=== PATIENT | male | born 1980 | race Caucasian/White ===

== ENCOUNTER 2018-07-03 07:13 | Emergency (ER) | payer OTHER, SELFPAY ==
[2018-07-03 07:15] VITALS: BP 103/56; PULSE 78; RESP 14; TEMP 35.8; O2SAT 96; BMI 22.2
--- NOTE | 2018-07-03 07:33 | ED.VISSUMM ---
- ER Visit Summary Date of Service: 07/03/18 Chief Complaint: Headache History of Present Illness: The patient is a 37 M with history of migraine headaches and asthma who presents for 2 days of a headache. Patient states the headache is typical for his migraines and is located in the bilateral temples. It is achy and throbbing and is not responding to his home migraine medications. Patient has associated blurred vision but no nausea or vomiting. Patient states blurred vision is also typical for his migraine headaches. Today patient is also having a sore throat, sinus pressure, and a cough with associated pleuritic chest pain. He uses an albuterol inhaler as needed. Patient is a former smoker but does not smoke any longer. Physical Examination: Vital signs: afebrile, hemodynamically stable, no hypoxia on room air General: well nourished, well developed, in no distress, sitting with the lights on Skin: warm, dry, no rash, no pallor HEENT: normocephalic and atraumatic; PERRL, EOMI, no conjunctiva injection, moist mucous membranes, mild posterior oropharyngeal erythema without any exudate, swelling or lesions; patient has rhinorrhea and audible nasal congestion Cardiovascular: regular rate and rhythm without murmurs, no peripheral edema, 2+ pulses all distal extremities Respiratory: No increased work of breathing, lungs are clear to auscultation bilaterally, no rales, rhonchi or wheezing, no stridor Abdominal: Abdomen is soft, nontender with normoactive bowel sounds, no guarding or rebound, no masses MSK: Moves all extremities, no deformities, normal strength Neuro: Awake and alert, oriented ?4. No facial droop, sensation and motor function intact and symmetric Test Results: Clinical Impression(s) from Imaging Studies Chest X-Ray 07/03/18 07:55 IMPRESSION: Stable bilateral apical pleural thickening. Increased markings in the right infrahilar region suggestive of bronchiectasis. There has been no change. Electronically Signed: Sabino Hayes MD at 8:49 EDT Tel [phone], Service support , Medications Given Discontinued Medications Diphenhydramine HCl (Benadryl) 25 mg IV X1 ONE Stop: 07/03/18 07:33 Last Admin: 07/03/18 07:50 Dose: 25 mg Sodium Chloride () 1,000 mls @ 999 mls/hr IV .Q1H1M ONE Stop: 07/03/18 08:32 Last Admin: 07/03/18 07:46 Dose: 999 mls/hr Ketorolac Tromethamine (Toradol) 15 mg IV X1 ONE Stop: 07/03/18 07:33 Last Admin: 07/03/18 07:46 Dose: 15 mg Metoclopramide HCl (Reglan) 10 mg IV X1 ONE Stop: 07/03/18 07:33 Last Admin: 07/03/18 07:46 Dose: 10 mg Emergency Department Course and Treatment: Patient presents for 2 days of a typical migraine headache for him that is not responding to his home medications. This morning he is also having symptoms consistent with acute rhinosinusitis, with associated cough and pleuritic chest pain. Patient was offered oral medications, but he states since those did not work at home he would be amenable to a migraine cocktail. Patient was given a migraine cocktail of Reglan, Toradol, Benadryl and IV hydration. Chest x-ray was performed given the respiratory complaints on top of patient's chronic lung disease. Patient had no wheezing or diminished lung sounds on exam that would be concerning for acute asthma exacerbation requiring breathing treatments or steroids. Chest x-ray showed no signs of pneumonia. On reevaluation, patient's headache had decreased from an 8 out of 10 to a 4 out of 10. He was feeling much better and felt okay to go home and continue to rest. Patient was given a work note. Discharged home in improved condition. Treatment Plan: [] Disposition: [] Impression: Migraine headache, acute rhinosinusitis This note was generated with AskYou[employer] software. It may contain incorrect words, spelling, and punctuation that were not noted in review of the chart prior to signing ED Disposition - Plan for ED Patient: Chief Complaint: Headache Referrals: Immanuel Champion MD [Primary Care Provider] -
--- NOTE | 2018-07-03 07:37 | ED.DCSUM_ITS ---
- ER Visit Summary Date of Service: 07/03/18 Chief Complaint: Headache History of Present Illness: The patient is a 37 M with history of migraine headaches and asthma who presents for 2 days of a headache. Patient states the headache is typical for his migraines and is located in the bilateral temples. It is achy and throbbing and is not responding to his home migraine medications. Patient has associated blurred vision but no nausea or vomiting. Patient states blurred vision is also typical for his migraine headaches. Today patient is also having a sore throat, sinus pressure, and a cough with associated pleuritic chest pain. He uses an albuterol inhaler as needed. Patient is a former smoker but does not smoke any longer. Physical Examination: Vital signs: afebrile, hemodynamically stable, no hypoxia on room air General: well nourished, well developed, in no distress, sitting with the lights on Skin: warm, dry, no rash, no pallor HEENT: normocephalic and atraumatic; PERRL, EOMI, no conjunctiva injection, moist mucous membranes, mild posterior oropharyngeal erythema without any exudate, swelling or lesions; patient has rhinorrhea and audible nasal congestion Cardiovascular: regular rate and rhythm without murmurs, no peripheral edema, 2+ pulses all distal extremities Respiratory: No increased work of breathing, lungs are clear to auscultation bilaterally, no rales, rhonchi or wheezing, no stridor Abdominal: Abdomen is soft, nontender with normoactive bowel sounds, no guarding or rebound, no masses MSK: Moves all extremities, no deformities, normal strength Neuro: Awake and alert, oriented ?4. No facial droop, sensation and motor function intact and symmetric Test Results: Clinical Impression(s) from Imaging Studies Chest X-Ray 07/03/18 07:55 IMPRESSION: Stable bilateral apical pleural thickening. Increased markings in the right infrahilar region suggestive of bronchiectasis. There has been no change. Electronically Signed: Sabino Hayes MD at 8:49 EDT Tel [phone], Service support , Medications Given Discontinued Medications Diphenhydramine HCl (Benadryl) 25 mg IV X1 ONE Stop: 07/03/18 07:33 Last Admin: 07/03/18 07:50 Dose: 25 mg Sodium Chloride () 1,000 mls @ 999 mls/hr IV .Q1H1M ONE Stop: 07/03/18 08:32 Last Admin: 07/03/18 07:46 Dose: 999 mls/hr Ketorolac Tromethamine (Toradol) 15 mg IV X1 ONE Stop: 07/03/18 07:33 Last Admin: 07/03/18 07:46 Dose: 15 mg Metoclopramide HCl (Reglan) 10 mg IV X1 ONE Stop: 07/03/18 07:33 Last Admin: 07/03/18 07:46 Dose: 10 mg Emergency Department Course and Treatment: Patient presents for 2 days of a typical migraine headache for him that is not responding to his home medications . This morning he is also having symptoms consistent with acute rhinosinusitis, with associated cough and pleuritic chest pain. Patient was offered oral medications, but he states since those did not work at home he would be amenable to a migraine cocktail. Patient was given a migraine cocktail of Reglan, Toradol, Benadryl and IV hydration. Chest x-ray was performed given the respiratory complaints on top of patient's chronic lung disease. Patient had no wheezing or diminished lung sounds on exam that would be concerning for acute asthma exacerbation requiring breathing treatments or steroids. Chest x-ray showed no signs of pneumonia. On reevaluation, patient's headache had decreased from an 8 out of 10 to a 4 out of 10. He was feeling much better and felt okay to go home and continue to rest. Patient was given a work note. Discharged home in improved condition. Treatment Plan: [] Disposition: [] Impression: Migraine headache, acute rhinosinusitis This note was generated with mana.bo dictation software. It may contain incorrect words, spelling, and punctuation that were not noted in review of the chart pr ior to signing ED Disposition - Plan for ED Patient: Chief Complaint: Headache Referrals: Immanuel Champion MD [Primary Care Provider] -
[2018-07-03] MEDS: Ketorolac 30 MG/ML Syringe 15 MG IV (07:46)
[2018-07-03] MEDS: Metoclopramide 10 MG/2 ML Vial IV (07:46)
[2018-07-03] MEDS: 0.9% Normal Saline 1,000 ML 999 ML IV (07:46)
[2018-07-03] MEDS: DiphenhydrAMINE 50 MG/ML Syringe 25 MG IV (07:50)
--- NOTE | 2018-07-03 07:55 | RAD_ITS ---
STUDY: X-RAY CHEST REASON FOR EXAM: Male, 37 years old. One-week history of cough and headaches. TECHNIQUE: PA and lateral views of the chest. COMPARISON: Comparison is made with prior study dated April 10, 2017. FINDINGS: Stable mild degree of increased right infrahilar markings. Possible bronchiectasis at that site. Stable bilateral apical pleural thickening. Normal size heart. Normal mediastinum and naomi. Normal visualized pulmonary arteries. Normal visualized aortic arch and descending thoracic aorta. Normal visualized thoracic spine. Normal visualized ribs, clavicles, and shoulders. There is no demonstrated abnormality of the visualized soft tissue structures of the upper abdomen. RAD/Chest PA and Lateral IMPRESSION: Stable bilateral apical pleural thickening. Increased markings in the right infrahilar region suggestive of bronchiectasis. There has been no change. Electronically Signed: Sabino Hayes MD at 8:49 EDT Tel [phone], Service support ,
--- NOTE | 2018-07-03 08:59 | ED.DEP ---
ED Disposition - Plan for ED Patient: Disposition: Home or Assisted Living Chief Complaint: Headache Instructions: ED Headache Migraine, ED Sinusitis No Abx Referrals: Immanuel Champion MD [Primary Care Provider] - 3-5 Days if not improving Additional Instructions: Please rest for the rest of the day and drink plenty of fluids to stay hydrated. Continue your home medications as needed for your migraines and your asthma. If you have any worsening of your condition or any new concerning symptoms, please return immediately to the emergency department for another evaluation.
[2018-07-03 09:07] VITALS: BP 131/74; PULSE 62; RESP 15; O2SAT 98
== END 2018-07-03 09:11 | disposition home or self-care (01) ==
PROVIDERS: Emergency Provider Emergency Medicine; Family Provider Family Medicine; PCP Family Medicine
DX: G43.909 Migraine, unspecified, not intractable, without status migrainosus (principal); J01.90 Acute sinusitis, unspecified; J45.909 Unspecified asthma, uncomplicated
CPT/HCPCS: 71046; 96361; 96374; 96375; 99283; J7030

== ENCOUNTER 2018-07-17 06:09 | Emergency (ER) | payer OTHER, SELFPAY ==
[2018-07-17 06:10] VITALS: BP 115/70; PULSE 73; RESP 18; TEMP 36.4; O2SAT 99; BMI 21.6
--- NOTE | 2018-07-17 06:17 | EKG12_ITS ---
Test Reason : DIZZINESS Blood Pressure : / mmHG Vent. Rate : 063 BPM Atrial Rate : 063 BPM P-R Int : 148 ms QRS Dur : 094 ms QT Int : 412 ms P-R-T Axes : 076 070 070 degrees QTc Int : 421 ms Sinus rhythm with Premature supraventricular complexes Otherwise normal ECG Confirmed by YULY GAMEZ, VERONICA ([id number]), video effects editor JOE ABREU ([id number]) on 07/18/2018 3:44:14 PM Referred By: GLORIA Confirmed By:VERONICA EMERY MD
--- NOTE | 2018-07-17 06:20 | ED.DCSUM_ITS ---
- ER Visit Summary Date of Service: 07/17/18 Chief Complaint: Dizzy, nausea, vomiting History of Present Illness: The patient is a 37 M who was riding his bike to work this morning and felt nauseated, weak, and lightheaded. Patient did not eat anything this morning but states that is not atypical for him. He does report ill contacts and others with cough and congestion type symptoms. Patient states he felt well when he first got up this morning. He denies pain. Physical Examination: Vital signs are unremarkable. Patient is in no acute distress and is nontoxic appearing. Head and neck examination is normal. Heart is regular rate and rhythm. Palpable pulses are noted throughout. Lungs are clear with good air movement throughout. Abdomen is soft and nontender. Bowel sounds are noted. Extremity examination is unremarkable with full range of motion. Neurologic examination reveals no focal deficits. Test Results: EKG is sinus at 63 with no sign of acute interval change. CBC was normal white count. Hemoglobin 12.9. Chemistry studies unremarkable. Emergency Department Course and Treatment: Patient was given IV fluids and Zofran. On repeat evaluation he does feel improved. He is tolerating p.o. at this time. He will be given Zofran for home and a work note for today. Treatment Plan: [] Disposition: Discharge Impression: Nausea, improved This note was generated with Linkage dictation software. It may contain incorrect words, spelling, and punctuation that were not noted in review of the chart prior to signing ED Disposition - Plan for ED Patient: Chief Complaint: Dizziness Referrals: Immanuel Champion MD [Primary Care Provider] -
[2018-07-17 06:27] LABS: Absolute Lymphocyte Count 1.82 X10^3/ul (0.83-4.51); Absolute Neutrophil Count 4.7 X10^3/uL (2.0-7.7); Basophil# 0.04 X10^3/uL; Basophil% 0.5 % (0-1); Eosinophil# 0.24 X10^3/uL; Eosinophils% 3.1 % (0-5); Hematocrit 38.5 % (40-54); Hemoglobin 12.9 g/dl (13.0-16.5); Lymphocyte # 1.82 X10^3/ul (4.0); Lymphocyte % 23.9 % (19-41); Mean Corp Hgb Conc 33.5 g/gl (32-36); Mean Corpuscular Volume 83.7 fL (80-94); Monocyte# 0.77 X10^3/uL; Monocyte% 10.1 % (0-10); Neutrophil # 4.74 X10^3/uL (2.7-7.7); Neutrophil % 62.3 % (47-70); Platelet Count 317 K/mm3 (150-450); RBC Distribution Width CV 12.6 % (11.6-14.6); RBC Distribution Width SD 38.2 fl (35.1-43.9); White Blood Count 7.6 K/mm3 (4.4-11.0)
[2018-07-17] MEDS: Ondansetron 4 MG/2 ML Vial IV (06:27)
[2018-07-17] MEDS: 0.9% Normal Saline 1,000 ML 1000 ML IV (06:27)
[2018-07-17 06:28] LABS: POSITIVE COUNT NO; POSITIVE DIFFERENTIAL NO; POSITIVE MORPHOLOGY NO
[2018-07-17 06:48] LABS: Anion Gap 9 (5-15); BUN 25 mg/dL (7-18); BUN/Creat Ratio 22.5 RATIO (10-20); Calcium,Total 8.9 mg/dL (8.5-10.1); Chloride 106 mmol/L (98-107); Creatinine, Serum 1.11 mg/dL (0.70-1.30); EST Glomerular Filtration Rate 79 mL/min (>60); Est Glom Filt Rate - Afr Amer 96 mL/min (>60); Estimated Creatinine Clearance 76.73 ml/min; Glucose 110 mg/dL (74-106); Potassium 4.2 mmol/L (3.5-5.1); Sodium Level 141 mmol/L (136-145)
--- NOTE | 2018-07-17 07:14 | ED.DEP ---
ED Disposition - Plan for ED Patient: Disposition: Home or Assisted Living Chief Complaint: Dizziness Instructions: ED Nausea Vomiting Prescriptions: Ondansetron [Zofran Odt] 4 mg PO Q8H PRN PRN #10 tablet PRN Reason: Nausea Referrals: Immanuel Champion MD [Primary Care Provider] - 3-5 Days if not improving
[2018-07-17 07:22] VITALS: BP 115/70; PULSE 75; RESP 18; O2SAT 99
== END 2018-07-17 07:22 | disposition home or self-care (01) ==
PROVIDERS: Emergency Provider Emergency Medicine; Family Provider Family Medicine; PCP Family Medicine
DX: R11.0 Nausea (principal); R53.1 Weakness; K21.9 Gastro-esophageal reflux disease without esophagitis; J45.909 Unspecified asthma, uncomplicated; Z87.891 Personal history of nicotine dependence
CPT/HCPCS: 80048; 85025; 93005; 96361; 96374; 99284; J7030; A4216; J2405

== ENCOUNTER 2018-09-18 05:28 | Emergency (ER) | payer OTHER, SELFPAY ==
[2018-09-18 05:29] VITALS: BP 111/79; PULSE 75; RESP 18; TEMP 37; O2SAT 99; BMI 22.2
--- NOTE | 2018-09-18 05:31 | ED.RN ---
RN CALLED FOR EKG, PULLED OLD EKGS FOR
--- NOTE | 2018-09-18 05:41 | RAD_ITS ---
STUDY: X-RAY CHEST REASON FOR EXAM: Male, 37 years old. Left chest pain radiating into back starting yesterday TECHNIQUE: PA and lateral views of the chest. COMPARISON: 07/03/2018 FINDINGS: Joel monitors Stable hyperinflation and apical pleural thickening. Small stable calcified nodule left upper medial lung. Stable mild emphysematous changes. There is no demonstrated pleural abnormality. Normal size heart. Normal mediastinum and naomi. Normal visualized pulmonary arteries. Normal visualized aortic arch and descending thoracic aorta. Normal visualized thoracic spine. Normal visualized ribs, clavicles, and shoulders. There is no demonstrated abnormality of the visualized soft tissue structures of the upper abdomen. RAD/Chest PA and Lateral IMPRESSION: Stable hyperinflation with mild emphysema. No pulmonary edema, congestive heart failure or confluent pneumonia. Electronically Signed: Beth Dodson MD at 6:00 EST , Service support ,
--- NOTE | 2018-09-18 05:45 | ED.DCSUM_ITS ---
- ER Visit Summary Date of Service: 09/18/18 Chief Complaint: Chest pain History of Present Illness: The patient is a 37 M who presents with chest pain. It began yesterday. He describes it as a tightness. Currently it is 7 out of 10. It is on the left side of his chest and radiates through to his back. He has a history of prior similar symptoms related to his asthma. He does note recent URI-like illness with congestion rhinorrhea and productive cough. He is not short of breath. No history of DVT or pulmonary embolism. No recent travel surgery or immobilization. On review of records he has had multiple prior similar presentations. He has previously undergone significant chest pain workup including laboratory studies EKG chest x-ray CTA with multiple ER visit and primary care visits. He denies diabetes hypertension hyperlipidemia or smoking history. Physical Examination: Afebrile vitals are normal Patient resting comfortably no distress Skin warm and dry Moist mucous membranes Heart regular rate and rhythm Lungs are clear without rales rhonchi or wheezes Reproducible left upper chest tenderness which is where he indicates the worst of his pain is Abdomen soft Extremities nontender without edema 2+ symmetric radial pulses Test Results: EKG shows normal sinus rhythm at a rate of 75. View chest x-ray shows hyperinflation and mild emphysema no pulmonary edema CHF or confluent pneumonia. Emergency Department Course and Treatment: Patient has reproducible chest pain. He has normal EKG and no cardiac risk factors. I do not believe this is due to cardiac ischemia. He is PERC rule negative. I believe this is related to chest wall pain related to his recent URI-like illness and cough. He was advised on supportive care. He vocalized understanding. He is agreeable to this plan and all questions answered at bedside. He understands to return for new or worsening symptoms and was instructed on specific signs and symptoms to monitor for and was discharged home. Treatment Plan: [] Disposition: Discharge Impression: Chest wall pain This note was generated with [email or web address] dictation software. It may contain incorrect words, spelling, and punctuation that were not noted in review of the chart prior to signing ED Disposition - Plan for ED Patient: Chief Complaint: Chest Pain Referrals: Immanuel Champion MD [Primary Care Provider] -
--- NOTE | 2018-09-18 06:16 | EKG12_ITS ---
Test Reason : CP Blood Pressure : / mmHG Vent. Rate : 075 BPM Atrial Rate : 075 BPM P-R Int : 130 ms QRS Dur : 092 ms QT Int : 378 ms P-R-T Axes : 041 051 052 degrees QTc Int : 422 ms Normal sinus rhythm Normal ECG Confirmed by VERONICA EMERY MD ([id number]), editor house organ JOE ABREU ([id number]) on 09/23/2018 10:00:05 AM Referred By: SATISH Confirmed By:VERONICA EMERY MD
--- NOTE | 2018-09-18 06:17 | ED.DEP ---
ED Disposition - Plan for ED Patient: Chief Complaint: Chest Pain Instructions: ED Strain Chest Wall Referrals: Immanuel Champion MD [Primary Care Provider] -
[2018-09-18 06:21] VITALS: BP 110/68; PULSE 71; RESP 16; O2SAT 99
== END 2018-09-18 06:22 | disposition home or self-care (01) ==
LOC: ED 05:40
PROVIDERS: Emergency Provider Emergency Medicine; Family Provider Family Medicine; PCP Family Medicine
DX: R07.89 Other chest pain (principal); R05 Cough; J34.89 Other specified disorders of nose and nasal sinuses; J45.909 Unspecified asthma, uncomplicated
CPT/HCPCS: 71046; 93005; 99283

== ENCOUNTER 2019-02-26 15:05 | Emergency (ER) | payer SELFPAY ==
[2019-02-26 15:06] VITALS: BP 101/75; PULSE 90; RESP 17; TEMP 39.4; O2SAT 94; BMI 20.7
--- NOTE | 2019-02-26 15:46 | ED.VISSUMM ---
- ER Visit Summary Date of Service: 02/26/19 Chief Complaint: Sore throat fever and chills History of Present Illness: The patient is a 38 M past medical history of asthma and reflux. Patient states his Sunday since he was thrown chills. Able to swallow but hurts. Also cough with clear phlegm. No vomiting no diarrhea no dysuria. No trouble breathing. Physical Examination: Vital signs are stable he does have a fever of 103. Pulse ox 94% on room air no signs of hypoxia. Patient does not look septic or toxic. HEENT exam TMs normal bilaterally. Posterior pharynx bilateral tonsillar enlargement. Airway patent. No stridor. No drooling. Tonsils are erythematous and have exudate bilaterally. No peritonsillar abscess at this time. Neck is anterior chain lymphadenopathy trachea is nontender midline. No meningismus lungs with auscultation bilaterally. Heart regular rhythm no murmur. Abdomen is soft and nontender. Normal bowel sounds no peritoneal signs. Patient moving all 4 extremities. They are nontender. There is no erythema or edema. Back is nontender. Neurologically is awake and alert. He has no axillary or inguinal lymphadenopathy. Test Results: None Emergency Department Course and Treatment: Patient's clinical exam is consistent with acute strep tonsillitis. He will be given Tylenol for his fever. Started on amoxicillin for his strep throat. Treatment Plan: Warm salt water gargling. Plenty fluids and rest. Chloraseptic [place]. Alternate Tylenol Motrin for fever and pain. Amoxicillin 3 times daily for 10 days 30 no refill. Follow-up if not improving or return if worse. Disposition: Discharge Impression: Acute strep tonsillitis This note was generated with A[employer]on dictation software. It may contain incorrect words, spelling, and punctuation that were not noted in review of the chart prior to signing ED Disposition - Plan for ED Patient: Referrals: Immanuel Champion MD [Primary Care Provider] -
--- NOTE | 2019-02-26 15:53 | DCINST.ED_ITS ---
ED Disposition - Plan for ED Patient: Disposition: Home or Assisted Living Instructions: Strep Throat Prescriptions: Amoxicillin 500 mg PO Q8 #30 tab Prescription Printed Referrals: Immanuel Champion MD [Primary Care Provider] - 3-5 Days if not improving Additional Instructions: Plenty of fluids and rest. Alternate Tylenol and Motrin for pain and fever. Warm salt water gargling. Chloraseptic [place] and throat lozenges. Amoxicillin 3 times a day. Follow-up with your doctor if not improving and return if worse.
[2019-02-26] MEDS: AMOXICILLIN 500 MG CAPSULE PO (15:55)
[2019-02-26] MEDS: Acetaminophen 500 MG Tablet 1000 MG PO (15:55)
== END 2019-02-26 16:03 | disposition home or self-care (01) ==
PROVIDERS: Emergency Provider Emergency Medicine; Family Provider Family Medicine; PCP Family Medicine
DX: J03.00 Acute streptococcal tonsillitis, unspecified (principal); J45.909 Unspecified asthma, uncomplicated; K21.9 Gastro-esophageal reflux disease without esophagitis
CPT/HCPCS: 99283

== ENCOUNTER 2019-10-16 07:11 | Emergency (ER) | payer SELFPAY ==
[2019-10-16 07:12] VITALS: BP 116/74; PULSE 86; RESP 15; TEMP 36.7; O2SAT 98; BMI 22.0
--- NOTE | 2019-10-16 07:21 | EKG12_ITS ---
Test Reason : CP Blood Pressure : / mmHG Vent. Rate : 082 BPM Atrial Rate : 082 BPM P-R Int : 136 ms QRS Dur : 094 ms QT Int : 368 ms P-R-T Axes : 062 039 054 degrees QTc Int : 429 ms Normal sinus rhythm with sinus arrhythmia Normal ECG When compared with ECG of 18-SEP-2018 05:30, No significant change was found Confirmed by JANES QUIGLEY ([id number]), business editor LORENZO REDMOND ([id number]) on 10/24/2019 1:20:01 PM Referred By: JULIANNE Confirmed By:JANES QUIGLEY
--- NOTE | 2019-10-16 07:22 | RAD_ITS ---
STUDY: X-RAY CHEST REASON FOR EXAM: Male, 38 years old. CP. HX ASTHMA. OCCUPATION INVOLVES WORKING W/ [employer] TECHNIQUE: PA and lateral views of the chest. COMPARISON: 09/18/2018 FINDINGS: EKG leads project over the chest. The lungs are clear and expanded. There is pleural fibrotic thickening of the pulmonary lung apices. Normal size heart. Normal mediastinum and naomi. Normal visualized pulmonary arteries. Normal visualized aortic arch and descending thoracic aorta. Normal visualized thoracic spine. Normal visualized ribs, clavicles, and shoulders. There is no demonstrated abnormality of the visualized soft tissue structures of the upper abdomen. RAD/Chest PA and Lateral IMPRESSION: 1. Stable, nonacute x-ray examination of the chest. Electronically Signed: Mc Hudson MD ([place]) at 8:01 EST , Service support ,
[2019-10-16] MEDS: Aspirin 81 MG TAB.CHEW 324 MG PO (07:30)
[2019-10-16 07:42] LABS: Absolute Lymphocyte Count 1.48 X10^3/uL (0.83-4.51); Absolute Neutrophil Count 3.5 X10^3/uL (2.0-7.7); Basophil# 0.03 X10^3/uL; Basophil% 0.5 % (0-1); Eosinophil# 0.15 X10^3/uL; Eosinophils% 2.7 % (0-5); Hematocrit 42.8 % (40-54); Hemoglobin 14.3 g/dL (13.0-16.5); Lymphocyte # 1.48 X10^3/ul (4.0); Lymphocyte % 26.6 % (19-41); Mean Corp Hgb Conc 33.4 g/dL (32-36); Mean Corpuscular Hgb 27.4 pg (27.0-32.0); Mean Corpuscular Volume 82.1 fL (80-94); Monocyte% 7.2 % (0-10); NRBC Flagged by Analyzer 0 % (0-5); Neutrophil # 3.49 X10^3/uL (2.7-7.7); Neutrophil % 62.6 % (47-70); Platelet Count 296 K/mm3 (150-450); RBC Distribution Width CV 13.1 % (11.6-14.6); Red Blood Count 5.21 M/mm3 (4.6-6.2); White Blood Count 5.6 K/mm3 (4.4-11.0)
[2019-10-16 07:53] LABS: Anion Gap 5 (5-15); BUN 16 mg/dL (7-18); BUN/Creat Ratio 13.3 RATIO (10-20); Calcium,Total 8.9 mg/dL (8.5-10.1); Chloride 110 mmol/L (98-107); EST Glomerular Filtration Rate 72 mL/min (>60); Est Glom Filt Rate - Afr Amer 87 mL/min (>60); Estimated Creatinine Clearance 73.79 ml/min; Glucose 91 mg/dL (74-106); Potassium 3.8 mmol/L (3.5-5.1); Sodium Level 141 mmol/L (136-145)
--- NOTE | 2019-10-16 08:58 | ED.DCSUM_ITS ---
History of Present Illness Chief Complaint: Chest Pain Informant: Patient Narrative: Patient presenting for evaluation secondary to chest pain. Patient states that since yesterday has been dealing with intermittent chest pain. He states that it will come and go, does not necessarily have any sort of exacerbating relieving factors it is sharp and left-sided and will last for about 30 minutes and then spontaneously resolved. Patient states that today he was at work and had an onset of the chest pain and felt lightheaded. He denies that he had any associated shortness of breath. Patient denies any cardiovascular risk factors except for the fact that he does have a strong family history of premature cardiac disease with both his father and his grandfather having heart attacks prior to the age of 55. He is never had a stress test or heart cath. He has been tobacco free for about 9 years. He denies any DVT or PE risk factors. Review of systems otherwise negative. Past Medical History - Allergies and Home Meds Allergies/Adverse Reactions: Allergies latex Allergy (Verified 10/16/19 07:15) Rash azithromycin [From Zithromax] Adverse Reaction (Verified 10/16/19 07:15) Other Primary Care Physician: Care Physician,No Primary [Primary Care Provider] - Past Medical History: None Surgical History: noncontributory Smoking Status: Former smoker Review of Systems All systems negative except as indicated General: Denies: Chills, Fever, Sweats Eyes: Denies: Visual changes - bilaterally, Diplopia ENT: Denies: Rhinorrhea, Sore throat Cardiovascular: Reports: Chest pain Respiratory: Denies: Dyspnea, Cough, Dyspnea on exertion Gastrointestinal: Denies: Abdominal pain, Nausea, Vomiting, Diarrhea, Melena, Hematochezia Genitourinary: Denies: Dysuria, Hematuria, Frequency Musculoskeletal: Denies: Back pain, Extremity Pain Skin: Denies: Rash, Wounds Neurological: Denies: Headache, Weakness, Numbness Physical Exam Vital Signs/Narrative: Vital Signs Temp Pulse Resp BP Pulse Ox 10/16/19 07:12 98.0 F 86 15 116/74 98 Inital Vital Signs reviewed: Yes General: Well nourished, Well developed, No Acute Distress Head: Normocephalic, Atraumatic Eyes: Perrl, EOMI ENT: Moist mucous membranes, No rhinorrhea Neck: Supple, Nontender Cardiovascular: Regular rate, Regular rhythm, No murmurs Respiratory: No distress, CTA bilaterally, Chest nontender Abdomen: Soft, Nontender, Nondistended, Normal bowel sounds Back: Nontender, Normal Inspection Extremities: Nontender, No edema Skin: Normal color, No rash Neurological: Alert, Oriented x3, Cranial nerves II-XII grossly intact, Normal Strength, Normal Sensation Psychological: Normal affect, Normal Mood Diagnostic/Tx/Re-eval - EKG Initial EKG Interpretation: - - Sinus rhythm of 82 with sinus arrhythmia, isoelectric ST segments normal T waves no evidence of acute ischemia or arrhythmia. - Medical Decision Making Patient presented for evaluation secondary to chest pain. EKG was found to be unremarkable. PA and lateral chest x-ray by my personal review as well as radiology is negative for acute process. CBC chemistry and troponin are found to be negative. Patient's heart score is a 2, feel that he is low risk for coronary ischemia. 3-hour delta troponin was performed as the patient does have an underlying family history of premature cardiac disease, and also was found to be negative. Patient has no PE risk factors. I believe his chest pain is likely atypical in nature. I believe that he is safe and appropriate for discharge she was recommended follow-up at the [facility]. ED Disposition - Plan for ED Patient: Disposition: Home or Assisted Living Diagnosis: Chest pain Instructions: CHEST PAIN, Uncertain Cause Referrals: Melania Pope [NON-STAFF] - 1-2 Weeks
[2019-10-16 08:59] VITALS: BP 104/77; PULSE 57; RESP 18; O2SAT 100
[2019-10-16 11:24] VITALS: BP 110/72; PULSE 65; RESP 15; O2SAT 100
== END 2019-10-16 11:25 | disposition home or self-care (01) ==
PROVIDERS: Emergency Provider Emergency Medicine
DX: R07.9 Chest pain, unspecified (principal); J45.909 Unspecified asthma, uncomplicated; Z82.49 Family history of ischemic heart disease and other diseases of the circulatory system; Z87.891 Personal history of nicotine dependence; Z88.1 Allergy status to other antibiotic agents; Z91.040 Latex allergy status
CPT/HCPCS: 71046; 80048; 84484; 85025; 93005; 99285; A4216

== ENCOUNTER 2020-02-09 06:16 | Emergency (ER) | payer SELFPAY ==
[2020-02-09 06:16] VITALS: BP 110/69; PULSE 65; RESP 18; TEMP 36.5; O2SAT 98; BMI 21.9
--- NOTE | 2020-02-09 06:20 | ED.DCSUM_ITS ---
History of Present Illness Chief Complaint: Asthma Informant: Patient Narrative: Stated he started having asthma flare yesterday. No home treatment. He did not have his albuterol inhaler. Has had wheezing and shortness of breath secondary to wheezing. Last prednisone usage is unknown. It is been sometime. He stated that this started when him and his stated that his sister's house and has a dog that sheds. No sick contacts. Current severity is mild to moderate. Worsened this morning so he came in for breathing treatments. Denies any coronavirus exposure. Past Medical History - Allergies and Home Meds Allergies/Adverse Reactions: Allergies latex Allergy (Verified 10/16/19 07:15) Rash azithromycin [From Zithromax] Adverse Reaction (Verified 10/16/19 07:15) Other Primary Care Physician: Care Physician,No Primary [Primary Care Provider] - Prior records reviewed: Yes Past Medical History: - - Asthma Surgical History: noncontributory Smoking Status: Former smoker Alcohol: None Drugs: None Review of Systems General: Denies: Chills, Fever, Sweats Eyes: Denies: Visual changes - bilaterally, Diplopia ENT: Denies: Rhinorrhea, Sore throat Cardiovascular: Denies: Chest pain, Palpitations Respiratory: Reports: Dyspnea. Denies: Cough, Dyspnea on exertion Gastrointestinal: Denies: Abdominal pain, Nausea, Vomiting, Diarrhea, Melena, Hematochezia Genitourinary: Denies: Dysuria, Hematuria, Frequency Musculoskeletal: Denies: Back pain, Extremity Pain Skin: Denies: Rash, Wounds Neurological: Denies: Headache, Weakness, Numbness Physical Exam Vital Signs/Narrative: Vital Signs Temp Pulse Resp BP Pulse Ox 02/09/20 06:16 97.7 F L 65 18 110/69 98 General: Well nourished, Well developed, No Acute Distress Head: Normocephalic, Atraumatic Eyes: Perrl, EOMI ENT: Moist mucous membranes, No rhinorrhea Neck: Supple, Nontender Cardiovascular: Regular rate, Regular rhythm, No murmurs Respiratory: No distress, Chest nontender, Wheezing - Diffuse expiratory wheezing throughout all lung curiel. Speaking in full sentences.. Negative for: Retractions Abdomen: Soft, Nontender, Nondistended, Normal bowel sounds Back: Nontender, Normal Inspection Extremities: Nontender, No edema Skin: Normal color, No rash Neurological: Alert, Oriented x3, Cranial nerves II-XII grossly intact, Normal Strength, Normal Sensation Psychological: Normal affect, Normal Mood Diagnostic/Tx/Re-eval - Medical Decision Making Patient given albuterol treatment nebulizer x3 and Atrovent nebulizer treatment x1. On reevaluation wheezing is much better. Given oral prednisone. I do not feel he needs imaging. Given albuterol inhaler for home. Given a prescription for prednisone. At this time I feel he has an acute asthma exacerbation ED Disposition - Plan for ED Patient: Disposition: Home or Assisted Living Diagnosis: Acute asthma exacerbation Instructions: Understanding Asthma Triggers Prescriptions: Prednisone [Deltasone] 60 mg PO DAILY #15 tab Transmission Status: Pending to [id number] Referrals: Alberto Brown MD [STAFF PHYSICIAN] -
[2020-02-09] MEDS: predniSONE 20 MG Tablet 60 MG PO (06:22)
[2020-02-09] MEDS: Ipratropium/Albuterol Sulfate 3 ML AMPUL.NEB INHALATION (06:36)
[2020-02-09] MEDS: Albuterol 2.5 MG/3 ML VIAL.NEB. INHALATION ×3 (06:36)
[2020-02-09 06:37] VITALS: PULSE 65; RESP 16; O2SAT 97
[2020-02-09 07:06] VITALS: PULSE 88; RESP 19; O2SAT 98
--- OUTSIDE RECORDS SUMMARY | 2020-06-27 05:30 | XMS RPT_ITS | CCD ---
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 dermatitis [L21.9] INVALID FOR* Tobacco chew use [Z72.0] INVALID FOR* Mild intermittent asthma without complication [*INVALID FOR* Encounter for screening for diabetes mellitus [*INVALID FOR* Encounter for screening for cardiovascular diso*INVALID FOR* Post concussion syndrome [F07.81] INVALID FOR* Family history of MT (myocardial infarction) [Z*INVALID FOR* More... GERD without esophagitis [K21.9] INVALID FOR* Current use of proton pump inhibitor [Z79.899] INVALID FOR* Seasonal allergic rhinitis [J30.2] INVALID FOR* Prescriptions ordered this encounter Disp Refills Start End SUMATRIPTAN 100 MG TABLET 12 t* 1 10/09/2018 Sig: One table by mouth with onset of headache. Can repeat i n an hour but only 2 tabs in 24 hrs. CETIRIZINE 10 MG TABLET 30 t* 1 10/09/2018 Route: ORAL Sig: Take 1 tablet by mouth once daily. OMEPRAZOLE 40 MG CAPSULE,DELAYED REL* 30 c* 1 10/09/2018 Route: ORAL Sig: Take 1 capsule by mouth once daily. Medications Discontinued During This Encounter SUMAtriptan (IMITREX) 100 mg tablet 12 t* 3 04/24/2018 019 Sig: One table by mouth with onset of headache. Can repeat in an hour but only 2 tabs in 24 hrs. Disc: Reason for discontinue is not on file. cetirizine (ZYRTEC) 10 mg tablet 30 t* 5 04/24/2018 10/09/2018 Route: ORAL Sig: Take 1 tablet by mouth once daily. Disc: Reason for discontinue is not on file. Omeprazole 40 mg capsule 30 c* 5 04/24/2018 10/09/2018 Route: ORAL Sig: Take 1 capsule by mouth once daily. Disc: Reason for discontinue is not on file. Disposition: Return for 1-2 months complete PE. Follow-up and Disposition History Recorded Clinical report posted in error Void Comment: error Letter Text October 09, 2018 TO WHOM IT MAY CONCERN: This is to certify that Mr. Bruce Coleman has been under m y care for general illness and was seen in my office 10/09/3018 and was unable to work from 10/09/2018 through 10/09/2018. Mr. Coleman may return to work on 10/10/2018 without restri ctions. Sincerely yours, Zheng Pabon MD Encounter Status:Closed by ZHENG PABON on 10/09/18 cnco on 2018-10-09 CNCO Letter Text Normal 10-09-2018 [facility] ([id number]) Department of Family Medicine [address] [place], [place] [id number] October 09, 2018 TO WHOM IT MAY CONCERN: This is to certify that Mr. Bruce Coleman has been under m y care for general illness and was seen in my office 10/09/2018 and was unable to work from 10/09/2018 through 10/09/2018. Mr. Coleman may return to work on 10/10/2018 without restri ctions. Sincerely yours, Zheng Pabon MD Summary Purpose Family History No Family History Records Found Advance Directives No Advanced Directives Records Found Additional Source Comments FOR RECORDS PERTAINING TO PATIENTS WHO ARE OR HAVE BEEN ENROLLED IN A CHEMICAL DEPENDENCY/SUBSTANCE ABUSE PROGRAM, SOME INFORMATION MAY BE OMITTED. This clinical summary was aggregated from multiple sources. Caution should be exercised in using it in the provision of clinical care. This summary normalizes information from multiple sources, and as a consequence, information in this document may materially changethe coding, format and clinical context of patient data. In addition, data may be omittedin some cases. CLINICAL DECISIONS SHOULD BE BASED ON THE PRIMARY CLINICAL RECORDS. [facility] provides no warranty or guarantee of the accuracy or completeness of information in this document. UNRECOGNIZED CONTENT PROVIDED BELOW FOR UNRECOGNIZED SECTION No Status Records Found UNRECOGNIZED CONTENT PROVIDED BELOW FOR UNRECOGNIZED SECTION INFORMATION SOURCE DATE CREATED AUTHOR AUTHOR'S ORGANIZATIO N 08/19/2019 [facility] Pablo galvez
--- OUTSIDE RECORDS SUMMARY | 2020-06-27 05:32 | XMS RPT_ITS | CCD ---
:1980 External Reference #:[id number] Author Organization [facility] [employer] Care Team Providers Name Role Phone Unavailable Unavailable Unavailable Results Result Name Value Range Unit Interpretation Flag Date Location progress on 2019-08 PROGRESS HNO ID: [id number] Normal 08-19-2019 [facility] Author: Jeb Jones) Dary Brantley ([id number]) Service: ? Author Type: Physician Breakfast Server Type: Progress Notes Filed: 08/19/2019 2:49 PM [...] of Onset - Coronary Artery Disease Father NE age 46 - Asthma Father - COPD [...] 2019-08-19 CNOV Office Visit (UCWSTR) Normal 08-19-[address] [place] [address] [facility] BRUCE COLEMAN ([id number]) 1980 [facility] Date Time Provider Department ([id number]) 08/19/19 12:00 PM JEB ODEN (RELL) UCWSTR [...] of Onset - Coronary Artery Disease Father NE age 46 - Asthma Father - COPD [...] cough [J06.9, B97.89] Order(s):RAPID STREP TEST B/O [[id number]] Order #: [id number] predniSONE (DELTASONE) 20 mg tabletTake 2 tablets [...] concussion syndrome [F07.81] 07/26/2015 Family history of NE (myocardial infarction) [Z*01/19/2016 More... GERD without esophagitis [...] 08/19/19 progress on 2018-11 PROGRESS HNO ID: [id number] Normal 11-12-2018 [place] Author: [facility] Service: ? [place] Author Type: Physician Breakfast Server ([id number]) Type: Progress Notes Filed: 11/12/2018 3:44 PM [...] of Onset - Coronary Artery Disease Father NE age 46 - Asthma Mother - Asthma [...] Disorders Post Concussion Syndrome Family History of NE (Myocardial Infarction) Gerd Without Esophagitis Current Use [...] Abs Lymph 1.00 - 4.00 k/uL 1.65 [place]% % 8.5 Abs [place] <0.87 k/uL 0.57 Eosin% % 3.0 Abs [...] 2018-11-12 CNOV Office Visit (FAMPWS) Normal 11-13-19 [place] [facility] BRUCE COLEMAN ([id number]) 1980 M [place] Date Time Provider Department ([id number]) 11/12/18 3:00 PM NATE JIMÉNEZ) FAMPWS During [...] of Onset - Coronary Artery Disease Father NE age 46 - Asthma Mother - Asthma [...] Disorders Post Concussion Syndrome Family History of NE (Myocardial Infarction) Gerd Without Esophagitis Current Use [...] Abs Lymph 1.00 - 4.00 k/uL 1.65 [place]% % 8.5 Abs [place] <0.87 k/uL 0.57 Eosin% % 3.0 Abs [...] inhibitor [Z79.899] Order(s):MAGNESIUM BLD [SQMG1] Order #: [id number] FUTURE Prescriptions as of 11/12/2018 Sig: SUMATRIPTAN [...] syndrome [F07.81] INVALID FOR* Family history of NE (myocardial infarction) [Z*INVALID FOR* More... GERD without esophagitis [K21.9] INVALID FOR* Current use of proton pump inhibitor [Z79.899] INVALID FOR* Seasonal allergic rhinitis [J30.2] INVALID FOR* Medications Discontinued During This Encounter Sxrcuapowhadf-Xmkpkazpulrvl-HW (TYLE* 30 t* 0 08/19/201811/12 Route: ORAL [...] 11/12/18 progress on 2018-09 PROGRESS HNO ID: [id number] Normal 10-09-2018 [facility] Author: Zheng Pabon [place] Service: (none) (000 00) Author Type: Physician [...] of Onset - Coronary Artery Disease Father NE age 46 - Asthma Mother - Asthma [...] for Wheezing/Shortness of Breath. Use over 5-15minutes. Zctyafurijvpe-Obbamxwrcovol-PD (TYLENOL COLD HEAD CONGEST SE VR) 5-325-200 [...] for SHAINA Pabon MD PROGRESS HNO ID: [id number] Normal 10-09-2018 [facility] Author: Deandra Antony Ma [place] Service: (none) (000 00) Author Type: (none) Type: Progress Notes Filed: 10/09/2018 9:49 PM Note Text: 37 year old male here for INACTIVATED INFLUENZA VACCINE. 3531-1830 Season Patient is identified by name and date of : Yes ___ [] CONTRAINDICATIONS color enhanced section Age less than 6 months? No Allergy to eggs, chicken, chicken feathers, or chicken dande r? No Allergy to thimerosal (a preservative) or formaldehyde, rosanna tin? No History of severe reaction to any vaccine component or a pre vious dose of influenza vaccination? 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 Yes See immunization activity in [facility] for details of immuniz ations adminstered today. Patient age: [age] year old For The 5119-5354 Flu Season 6-35 months old: Fluzone 0.25 [...] Specimen Source Throat Swab Normal 10-09-19 19 [facility] ([id number]) Comment: Performed By: #### GASPCR ## ## [facility] [address] [place], [place] [address] Group A Strep PCR Negative for Group A Normal 0 10-09-2018 [facility] Streptococcus by PCR. [place] ([id number]) Comment: Result Comment: This test wa s developed and its performance characteristics determined by [facility] [place] ([facility]). It has not been cleared or a pproved by the FDA. [facility] is regulated under CLIA as qualified to perform high-complexity testing. This test is used for clinical purposes. It should not be regarded as inv estigational or for research . Performed By: #### GASPCR ## ## [facility] [address] [place], [place] [address] cnov on 2018-10-09 CNOV Office Visit (FAMPWS) Normal 10-09-19 19 [place] [facility] BRUCE COLEMAN ([id number]) 1980 [facility] Date Time Provider Department ([id number]) 10/09/18 1:20 PM ZHENG PABON [facility] During your visit today, we recorded the following informati on about you: Temperature Pulse Respiration Blood pressure 97.8 degrees 68/minute 12/minute 112/80 Weight 60.3 kg Deandra Antony Ma 10/09/2018 9:49 PM Signed 37 year old male here for INACTIVATED INFLUENZA VACCINE. 3771-8242 Season Patient is identified by name and date of : Yes ___ [] CONTRAINDICATIONS color enhanced section Age less than 6 months? No Allergy to eggs, chicken, chicken feathers, or chicken dande r? No Allergy to thimerosal (a preservative) or formaldehyde, rosanna tin? No History of severe reaction to any vaccine component or a pre vious dose of influenza vaccination? No History of Guillain-Huntington Syndrome within 6 weeks afte r a [...] patient has fainted in the past, e [facility] recommends sitting or lying down for 15 minutes after the vaccination. ___ [] VERIFICATION color enhanced section Was the answer Yes for any of the above contraindications? No contraindications present. Acceptable to proceed with vaccin e. Patient/guardian agrees the above answers are true to the be st of their knowledge? Yes Flu vaccine information sheet given? Yes See immunization activity in [facility] details of immunizations adminstered today. Patient age: [age] year old For The 9455-6583 Flu Season 6-35 months old: Fluzone 0.25 [...] 37 [facility] Complaint[facility].. Patient has had a [...] of Onset - Coronary Artery Disease Father NE age 46 - Asthma Mother - Asthma [...] Wheezing/Shortne ss of Breath. Use over 5-15minutes. Ggyfehybbimoe-Cwdjkzxtlznmr-HB (TYLENOL COLD HEAD SOL EST SEVR) 5-325-200 [...] QUADRIVALENT AGE 3 YRS PLUS + IM [[id number]] Order #: [id number] SUMAtriptan (IMITREX) 100 mg tabletOne table by mouth with o nset of headache. Can repeat in an hour but only 2 tabs in 24 hrs.Di sp: 12 tabletRfl: 1 cetirizine (ZYRTEC) 10 mg tabletTake 1 tablet by mouth once daily.Disp: 30 tabletRfl: 1 Omeprazole 40 mg capsuleTake 1 capsule by mouth once daily.D isp: 30 capsuleRfl: 1 RAPID STREP TEST B/O [[id number]] Order #: [id number] GROUP A STREPTOCOCCUS BY PCR [SQGASPCR] Order #: [id number] pec. #:[id number] Prescriptions as of 10/09/2018 Sig: SUMATRIPTAN 100 MG TABLET One table by mouth with onset* CETIRIZINE 10 MG TABLET Take 1 tablet by mouth once d* OMEPRAZOLE 40 MG CAPSULE,NANCY* Take 1 capsule by mouth once * ALBUTEROL SULFATE 90 MCG/ACTU* Inhale 1 Inhalation as instru * ALBUTEROL SULFATE 2.5 MG/3 ML* Use 3 mL via nebulizer every * GLBCEKEJYVPVY-TEWZFUCEPBYTH-N* Take 1 Dose by mouth as direc [...] syndrome [F07.81] INVALID FOR* Family history of NE (myocardial infarction) [Z*INVALID FOR* More... GERD without [...] on 2018-10-09 CNCO Letter Text Normal 10-09-2018 [facility] ([id number]) Department of Family Medicine [address] [place], [place] [phone] October 09, 2018 TO WHOM IT MAY [...] BE BASED ON THE PRIMARY CLINICAL RECORDS. [email or web address] [facility] provides no warranty or guarantee of the accuracy or completeness of information in this document. UNRECOGNIZED CONTENT PROVIDED BELOW FOR UNRECOGNIZED SECTION No Status Records Found UNRECOGNIZED CONTENT PROVIDED BELOW FOR UNRECOGNIZED SECTION INFORMATION SOURCE DATE CREATED AUTHOR AUTHOR'S ORGANIZATIO N 08/19/2019 [facility] Pablo galvez
== END 2020-02-09 07:08 | disposition home or self-care (01) ==
LOC: ED 07:03
PROVIDERS: Emergency Provider Emergency Medicine; PCP Family Medicine
DX: J45.901 Unspecified asthma with (acute) exacerbation (principal); Z87.891 Personal history of nicotine dependence; Z88.1 Allergy status to other antibiotic agents; Z91.040 Latex allergy status
CPT/HCPCS: 94640; 99251; 99284; G0463

== ENCOUNTER 2021-03-03 17:40 | Emergency (ER) | payer SELFPAY ==
[2021-03-03 17:41] VITALS: BP 127/66; PULSE 77; RESP 15; TEMP 36.1; O2SAT 99; BMI 21.3
--- NOTE | 2021-03-03 18:15 | RAD_ITS ---
STUDY: X-RAY - LEFT KNEE REASON FOR EXAM: Male, 40 years old. Injury/Pain TECHNIQUE: 4 view(s) of the knee. COMPARISON: None. FINDINGS: Normal visualized distal femur. Normal visualized proximal tibia and fibula. Normal proximal tibiofibular articulation. There is no demonstrated fracture. Normal medial femorotibial compartment. Normal lateral femorotibial compartment. Normal patellofemoral articulation. There is a small to moderate volume joint effusion. The soft tissue structures are unremarkable. RAD/Knee 4 or More Views IMPRESSION: Small to moderate effusion. No gross fractures or dislocations. Electronically Signed: Noe Torres MD at 18:54 EDT , Service support ,
--- NOTE | 2021-03-03 19:39 | EDS_ITS ---
HPI History of Present Illness HPI Narrative: Patient presents with left knee pain for the past 2 weeks. Patient states it is gradually gotten worse. Patient denies any specific trauma or injury. Patient states the pain is localized over the anterior aspect of the left knee. Patient states it feels like it is slightly more swollen than the right. Patient states the pain is worse with flexion. Patient states nothing makes the pain better. Patient denies any paresthesias or weakness. Patient describes his pain as sharp. Chief Complaint: Lower Extremity Injury Informant: patient Onset/Context/Timing Onset: Weeks (2) Context: Gradual Onset Timing: Continuous Quality of Pain: Sharp Location: Anterior left knee Worsened by: Flexion Relieved by: Nothing Associated Symptoms Associated Symptoms: Negative for Parasthesia and Weakness PFSH PFS Medical History (Updated 03/03/21 @ 19:[address] Blane Tyler DO) Asthma GERD (gastroesophageal reflux disease) Home Medications albuterol sulfate [Ventolin Hfa] 1 puff INHALATION Q4H PRN PRN 04/10/17 [History Last Taken 04/10/17 04:30] Allergy/AdvReac Type Severity Reaction Status Date / Time latex Allergy Rash Verified 03/03/21 17:42 azithromycin [From Zithromax] AdvReac Other Verified 03/03/21 17:42 no surgical history Social History Smoking Status: Never smoker ROS ROS ED Constitutional Constitutional ED: Denies chills or fever(s) Eyes Eyes: Denies blurry vision or change in vision ENT ENT ED: Denies rhinorrhea or sore throat Cardiovascular Cardiovascular: Denies chest pain or palpitations Respiratory/Chest Respiratory/Chest: Denies cough or dyspnea Gastrointestinal Gastrointestinal: Denies nausea or vomiting Genitourinary Genitourinary ED: Denies dysuria or hematuria Musculoskeletal Musculoskeletal: Denies back pain or neck pain Integumentary Denies abscess or rash Neurologic Neurologic: Denies headache(s) or weakness Allergic/Immunologic Allergic/Immunologic ED: Denies mouth swelling or urticaria EXAM Physical Exam Const Vital Signs: 03/03/21 17:41 03/03/21 19:47 Temperature 96.9 F L Temperature Source Temporal Pulse Rate 77 70 Respiratory Rate 15 18 Blood Pressure 127/66 H Blood Pressure Mean 86 Pulse Ox 99 Oxygen Delivery Method Room Air Positive well nourished and well developed General Appearance ED: well developed HEENT Reports moist mucous membranes Neck full ROM Extremity Extremity Narrative: There is some tenderness over the anterior lateral aspect of the left knee. There is no deformity. There is no effusion. There is no bony crepitance or step-off. Range of motion was limited from 0 to 10 degrees of flexion due to pain. There is no laxity however there was some guarding on exam. Pedal pulses are equal bilateral. There are no sensory deficits noted. Neuro oriented x3, CN's II-XII intact bilaterally, moves all extremities and no sensory deficits noted Sensorium / Orientation: alert Psych mental status grossly normal MDM MDM MDM Narrative Medical decision making narrative: X-rays of the left knee were obtained. There are 4 views. On my interpretation, there is no acute fracture. There is no dislocation. There is no soft tissue swelling. Radiologist also interpreted the x-rays and agrees. Patient was instructed to use ice to the area. Patient was instructed to keep the left knee elevated. Patient was instructed to follo w-up with his primary care physician in 5 to 7 days. Patient was instructed Tylenol or ibuprofen as needed for pain. Patient understood and was agreeable with the plan. All questions were answered. Radiography Diagnostic Testing: Radiology Impression Knee X-Ray 03/03/21 18:15 IMPRESSION: Small to moderate effusion. No gross fractures or dislocations. Electronically Signed: Noe Torres MD at 18:54 EDT , Service support , Discharge Plan Triage Chief Complaint: Lower Extremity Injury ED Provider: Blane Tyler Dx/Rx/DC Orders Clinical Impression: Knee pain, left Instructions: ED Knee Pain of Uncertain Cause Prescriptions: No Action albuterol sulfate [Ventolin HFA] 18 GM HFA aerosol inhaler 1 puff inhalation Q4H PRN PRN (Reason: Asthma) RF: 0 Primary Care Provider: Immanuel Champion Referrals: Immanuel Champion MD [Primary Care Provider] - 5-7 Days Disposition Disposition: Home, Self Care Discharge Date/Time: 03/03/21 19:48
[2021-03-03 19:47] VITALS: PULSE 70; RESP 18
== END 2021-03-03 19:48 | disposition home or self-care (01) ==
PROVIDERS: Emergency Provider Emergency Medicine; PCP Family Medicine
DX: M25.562 Pain in left knee (principal); K21.9 Gastro-esophageal reflux disease without esophagitis; J45.909 Unspecified asthma, uncomplicated
CPT/HCPCS: 73564; 99282

== ENCOUNTER 2021-04-03 23:25 | Emergency (ER) | payer SELFPAY ==
[2021-04-03 23:25] VITALS: BP 126/84; PULSE 74; RESP 18; TEMP 36.6; O2SAT 98; BMI 22.1
--- NOTE | 2021-04-03 23:44 | EX.ED.DYSGE1 ---
HPI History of Present Illness Chief Complaint: Rash Detail of Chief Complaint: Rash that started this evening Informant: patient Narrative Narrative: Patient presents to the emergency department complaint of a rash that started this evening. Patient describes an itchy rash that started on his medial thighs and also upper arms. Denies any new soaps or detergents or perfumes. Denies eating any nuts or unusual foods. Patient states that he did have a stomach flulike illness that lasted about 24 hours 2 days ago. Patient states he started feeling normal yesterday. Prior similar symptoms: No PFSH PFSH Medical History (Updated 04/03/21 @ 23:[address] Zenon Cowan, ) Asthma GERD (gastroesophageal reflux disease) Home Medications albuterol sulfate [Ventolin Hfa] 1 puff INHALATION Q4H PRN PRN 04/10/17 [History Last Taken 04/10/17 04:30] hydroxyzine HCl 25 mg PO Q8H PRN #14 tab 04/03/21 [Rx Last Taken Unknown] prednisone 20 mg PO BID #10 tab 04/03/21 [Rx Last Taken Unknown] Allergy/AdvReac Type Severity Reaction Status Date / Time latex Allergy Rash Verified 04/03/21 23:27 azithromycin [From Zithromax] AdvReac Other Verified 04/03/21 23:27 Social History Smoking Status: Never smoker ROS ROS ED Constitutional Constitutional ED: Reports systems reviewed and no addt'l complaints, except as documented; Denies body ache(s), change in weight or chills Eyes Eyes: Denies acute decrease in peripheral vision, change in vision, double vision or loss of vision ENT ENT ED: Reports none; Denies ear pain, lip swelling, loss taste/smell, neck pain, otalgia or sore throat Cardiovascular Cardiovascular: Reports none; Denies abdominal pain, chest pain with activity, leg edema, lightheadedness, palpitations, rapid heart rate or syncope Respiratory/Chest Respiratory/Chest: Reports none; Denies change in mental status, dry cough, dyspnea, hemoptysis, shortness of breath at rest or shortness of breath with exertion Gastrointestinal Gastrointestinal: Reports none; Denies abdominal pain, change in stool character, diarrhea, hematemesis, hematochezia, melena, rectal bleeding or vomiting Genitourinary Genitourinary ED: Reports none; Denies abdominal discomfort, anuria, dysuria, genital pain or polyuria Musculoskeletal Musculoskeletal: Reports none; Denies arthralgias, back pain, difficulty walking, extremity pain, muscle weakness or myalgias Integumentary Reports none and rash; Denies abscess Neurologic Neurologic: Reports none; Denies abnormal gait, confusion, focal weakness, frequent falls, headache(s), loss of vision, numbness, paresthesias, radicular pain, vertigo or weakness Psychiatric Psychiatric: Reports systems reviewed and no addt'l complaints, except as documented and none; Denies behavioral changes, confusion, difficulty concentrating, hallucinations, suicidal ideation, tactile hallucinations or visual hallucinations Endocrine Endocrinology: Denies none, cold intolerance, excessive sweating, fatigue or heat intolerance Hematologic/Lymphatic Hematologic/Lymphatic: Reports none; Denies anemia, easy bleeding or easy bruising Allergic/Immunologic Allergic/Immunologic ED: Denies as per HPI, none, lip swelling, mouth swelling, throat swelling, tongue swelling or hives EXAM Physical Exam Const Vital Signs: 04/03/21 23:25 Temperature 97.9 F Temperature Source Temporal Pulse Rate 74 Respiratory Rate 18 Blood Pressure 126/84 H Blood Pressure Mean 98 Pulse Ox 98 Oxygen Delivery Method Room Air Positive well nourished and well developed General Appearance ED: well developed and NAD HEENT Reports TM's clear and moist mucous membranes normocephalic and atraumatic; Negative for trauma or tenderness Tympanic Membrane ED: Yes TM's clear Eyes PERRL and EOMs intact bilaterally General Eye ED: Negative for pale conjunctiva or scleral icterus Neck no lymphadenopathy, supple and no JVD General: Negative for tenderness Chest Wall inspection of chest normal and palpation of chest normal Chest: Negative for tenderness Resp normal respiratory effort and clear to auscultation bilaterally Effort and Inspection: Negative for respiratory distress or pain with movement Auscultation: Negative for rhonchi, wheezes or diminished lung sounds Cardio regular rate, regular rhythm, S1 normal heart sound, S2 normal heart sound and no murmurs Peripheral Pulses: pulses 2+ throughout GI normal to inspection, nondistended, normoactive bowel sounds, soft to palpation, non-tender, non-distended and no masses Back/Spine no CVA tenderness and no thoracic nor lumbar tenderness Extremity normal to inspection General Extremety ED: Negative for edema General Extremity: Negative for edema Neuro oriented x3, CN's II-XII intact bilaterally, no sensory deficits noted and gait normal Sensorium / Orientation: awake, alert, oriented to person, oriented to place and oriented to time Motor Exam: strength 5/5 throughout and strength abnormal Psych mental status grossly normal Skin Skin Narrative: Patient presents to the emergency department with a slightly raised erythematous rash consistent with urticaria involving the upper arms and lower extremities. The rash is pruritic and blanches. MDM MDM MDM Narrative Medical decision making narrative: Patient was started on prednisone and Atarax. Patient advised to follow-up with primary care physician in 3 to 5 days as needed. Discharge Plan Triage Chief Complaint: Rash ED Provider: Zenon Cowan Dx/Rx/DC Orders Clinical Impression: Urticaria Instructions: ED Hives (Adult) Prescriptions: New prednisone 20 mg tablet 20 mg PO BID Qty: 10 RF: 0 hydroxyzine HCl 25 mg tablet 25 mg PO Q8H PRN (Reason: itching) Qty: 14 RF: 0 No Action albuterol sulfate [Ventolin HFA] 18 GM HFA aerosol inhaler 1 puff inhalation Q4H PRN PRN (Reason: Asthma) RF: 0 Primary Care Provider: Immanuel Champion Referrals: Immanuel Champion MD [Primary Care Provider] -
[2021-04-03] MEDS: predniSONE 20 MG Tablet 60 MG PO (23:52)
[2021-04-03] MEDS: hydrOXYzine 10 MG Tablet PO (23:52)
[2021-04-03 23:53] VITALS: BP 126/84; PULSE 78; RESP 16
== END 2021-04-04 00:01 | disposition home or self-care (01) ==
LOC: ED 04-04 00:01
PROVIDERS: Emergency Provider Emergency Medicine; PCP Family Medicine
DX: L50.9 Urticaria, unspecified (principal); K21.9 Gastro-esophageal reflux disease without esophagitis; J45.909 Unspecified asthma, uncomplicated; Z79.52 Long term (current) use of systemic steroids
CPT/HCPCS: 99283

== ENCOUNTER → 2021-09-05 15:46 | Outpatient (CLI) | payer OTHER, SELFPAY ==
--- NOTE | 2021-09-05 15:58 | MRI_ITS ---
EXAM: MR RIGHT LOWER EXTREMITY WITHOUT AND WITH INTRAVENOUS CONTRAST, ANKLE CLINICAL INDICATION: GANGLION CYST TECHNIQUE: Multiplanar and multisequence MR images of the right ankle without and with intravenous contrast. This report was created using i[employer] report [employer]ively[employer] technology. CONTRAST: IV 12CC DOTAREM COMPARISON: xr 16 FINDINGS: LIGAMENTS: ANTERIOR TALOFIBULAR: Unremarkable. Intact. POSTERIOR TALOFIBULAR: Unremarkable. Intact. ANTERIOR TIBIOFIBULAR: Unremarkable. Intact. POSTERIOR TIBIOFIBULAR: Unremarkable. Intact. CALCANEOFIBULAR: Unremarkable. Intact. DELTOID: Unremarkable. Intact. SPRING: Unremarkable. Intact. LISFRANC: Unremarkable. Intact. TENDONS: ACHILLES: Unremarkable. Intact. FLEXOR: Unremarkable. Intact. EXTENSOR: Unremarkable. Intact. PERONEAL: Unremarkable. Intact. TIBIALIS ANTERIOR: Unremarkable. Intact. TIBIALIS POSTERIOR: Unremarkable. Intact. MUSCLES: Unremarkable. Normal bulk and signal. FLUID: Unremarkable. No joint effusion. SINUS TARSI: Unremarkable. Normal fat in the sinus tarsi. TARSAL TUNNEL: Unremarkable. PLANTAR FASCIA: Unremarkable. Intact. CARTILAGE: Unremarkable. No osteochondral lesion. Articular cartilage intact. BONES/JOINTS: Unremarkable. Talar dome intact. No fracture or marrow edema. OTHER SOFT TISSUES: Unremarkable. MRI/Lower Ext Joint Only W/WO Cont IMPRESSION: Unremarkable MRI of the right ankle. Electronically Signed: Wang Ly MD at 21:08 EST , Service support ,
== END ==
LOC: MRI 15:46
PROVIDERS: PCP Family Medicine
DX: M67.471 Ganglion, right ankle and foot (principal)
CPT/HCPCS: 73723; A9575

== ENCOUNTER 2021-09-13 07:12 | Emergency (ER) | payer OTHER, SELFPAY ==
[2021-09-13 07:13] VITALS: BP 113/60; PULSE 102; RESP 18; TEMP 36.6; O2SAT 99; BMI 21.0
--- NOTE | 2021-09-13 07:34 | EX.ED.VIS.HA ---
HPI History of Present Illness Chief Complaint: Headache Informant: patient Onset/Context/Timing Onset: Today and Hours Context: Gradual Timing: Continuous Current Severity: Moderate Maximum Severity: Moderate Associated Symptoms/Injury Associated Symptoms: Positive for Photophobia; Negative for Fever, Nausea, Vomiting, Sore Throat, Sinus Pressure, Numbness, Tingling, Preceding Aura, Visual Changes and Visual Loss Narrative Narrative: 40-year-old male history of migraine headaches and asthma. States he had onset of migraine headache this morning several hours ago. States is bifrontal over his forehead. He denies any head trauma. He is on no blood thinners. No fever. No sinus congestion. He has had headaches like this before. He has had prior brain imaging that was negative. He denies any neck pain. Denies any motor loss. Prior similar symptoms: Yes Recent Illness/Hospitalization: No PFSH PFSH Medical History Asthma GERD (gastroesophageal reflux disease) Home Medications meloxicam 15 mg PO DAILY 09/13/21 [History Last Taken Unknown] Allergy/AdvReac Type Severity Reaction Status Date / Time latex Allergy Rash Verified 09/13/21 07:12 azithromycin [From Zithromax] AdvReac Other Verified 09/13/21 07:12 Social History Smoking Status: Never smoker ROS ROS ED ROS Narrative Headache. Review of Systems ROS Unobtainable: Denies due to encephalopathy Constitutional Constitutional ED: Denies fever(s) Eyes Eyes: Denies change in vision or diplopia ENT ENT ED: Denies ear pain Cardiovascular Cardiovascular: Denies chest pain or palpitations Respiratory/Chest Respiratory/Chest: Denies cough or dyspnea Gastrointestinal Gastrointestinal: Denies abdominal pain, constipation, diarrhea, nausea or vomiting Genitourinary Genitourinary ED: Denies dysuria Musculoskeletal Musculoskeletal: Denies myalgias Integumentary Denies rash Neurologic Neurologic: Reports headache(s) Psychiatric Psychiatric: Denies depression Endocrine Endocrinology: Denies polyuria Hematologic/Lymphatic Hematologic/Lymphatic: Denies easy bruising Allergic/Immunologic Allergic/Immunologic ED: Denies urticaria EXAM Physical Exam Narrative Exam Narrative: 40-year-old male vital signs are stable and he is afebrile. He does not look septic or toxic. He is in no acute distress. HEENT exam unremarkable. Atraumatic. Pupils round reactive to light. Neck nontender. No lymphadenopathy. No meningismus. Able to flex chin to chest without difficulty. Lungs clear to auscultation bilaterally. Heart regular rhythm rate about 100 no murmur. Abdomen soft and nontender normal bowel sounds no peritoneal signs. Moving all 4 extremities. 5 out of 5 health services information specialist strength. Dorsi plantarflexion intact. Nontender no edema. Back nontender. Neurologic exam normal. NIH is 0. GCS of 15. Normal health services information specialist strength bilaterally. Normal dorsi plantar flexion. [id number] and fingertip to nose all within normal limits. Const Vital Signs: 09/13/21 07:13 Temperature 97.8 F Temperature Source Temporal Pulse Rate 102 H Respiratory Rate 18 Blood Pressure 113/60 Blood Pressure Mean 77 Pulse Ox 99 Oxygen Delivery Method Room Air Positive well nourished and well developed; Negative for obese, cachectic, contractures or unkempt General Appearance ED: well developed and NAD; Negative for unkempt, cachectic, contractures, cyanotic, diaphoretic or pallor Nutritional Appearance: Negative for cachectic or obese HEENT Reports normocephalic and moist mucous membranes atraumatic; Negative for trauma or tenderness Eyes PERRL and EOMs intact bilaterally Neck no lymphadenopathy, supple, no meningeal signs and no JVD General: Negative for tenderness Resp normal respiratory effort and clear to auscultation bilaterally Auscultation: Negative for rales, rhonchi or wheezes Cardio regular rate, regular rhythm, S1 normal heart sound, S2 normal heart sound and no murmurs GI non-tender and non-distended Auscultation: normoactive bowel sounds Palpation: soft; Negative for firm, tender, guarding or rigid Back/Spine no CVA tenderness General Back: Negative for CVA tenderness or tenderness Cervical Spine: Negative for cervical spine tenderness Thoracic Spine / Upper Back: Negative for thoracic spinal tenderness Extremity normal to inspection and full ROM General Extremety ED: Negative for edema or tenderness General Extremity: Negative for edema Neuro oriented x3 and CN's II-XII intact bilaterally Sensorium / Orientation: awake, alert, oriented to person, oriented to place and oriented to time; Negative for orientation impaired, lethargic or stuporous Coordination / Balance: [id number] test normal and [id number] test normal Speech: speech normal Motor Exam: strength 5/5 throughout; Negative for general weakness Psych mental status grossly normal Appearance: Negative for unkempt Attitude: No agitated Mood & Affect: Negative for depressed or tearful Skin General Skin Exam: Negative for jaundice or pallor Lesions: no lesions Rashes: no rashes MDM MDM MDM Narrative Medical decision making narrative: 40-year-old male history of migraines with a headache and thinks is similar to his migraines. Neurologic exam is normal. Will be treated with IV fluids, Toradol, Benadryl and Compazine and reassessed. Repeat exam patient is doing well at 8:19 AM. Headache is starting to resolve. He has received his medications. He was given additional blankets and he is currently drinking water. His neurologic exam remains normal. He will be observed for a while longer and then discharged to home. Discharge Plan Triage Chief Complaint: Headache ED Provider: Ben Steele Dx/Rx/DC Orders Clinical Impression: Acute migraine Instructions: ED, Migraine (Classical) Prescriptions: No Action meloxicam 15 mg tablet 15 mg PO DAILY RF: 0 Primary Care Provider: Immanuel Champion Referrals: Immanuel Champion MD [Primary Care Provider] - 1-2 Days if not improving Activity Restrictions/Additional Instructions: Plenty of fluids and rest. Motrin and Tylenol for pain. Follow-up if not improving or return if worse. Disposition Disposition: Home, Self Care
[2021-09-13] MEDS: Ketorolac 30 MG/ML Syringe IV (07:49)
[2021-09-13] MEDS: 0.9% Normal Saline 1,000 ML 1000 ML IV (07:49)
[2021-09-13] MEDS: proCHLORPERazine 10 MG/2 ML Vial IV (07:50)
[2021-09-13] MEDS: DiphenhydrAMINE 50 MG/ML Syringe IV (07:50)
[2021-09-13 09:05] VITALS: BP 108/62; PULSE 79; RESP 15; O2SAT 98
== END 2021-09-13 09:06 | disposition home or self-care (01) ==
LOC: ED 07:46
PROVIDERS: Emergency Provider Emergency Medicine; PCP Family Medicine; Visit Provider Emergency Medicine
DX: G43.909 Migraine, unspecified, not intractable, without status migrainosus (principal); K21.9 Gastro-esophageal reflux disease without esophagitis; J45.909 Unspecified asthma, uncomplicated
CPT/HCPCS: 96361; 96374; 96375; 99283; J7030; A4216

== ENCOUNTER 2021-12-16 08:31 | Emergency (ER) | payer OTHER, SELFPAY ==
[2021-12-16 08:32] VITALS: BP 110/64; PULSE 80; RESP 16; TEMP 36.3; O2SAT 100; BMI 22.4
--- NOTE | 2021-12-16 08:54 | EX.ED.DYSGE1 ---
HPI History of Present Illness Chief Complaint: Dizziness Informant: patient Narrative Narrative: Reports awake in generalized headache dizziness since this morning. No fevers. No recent head injuries. No nausea or vomiting. Photophobia without phonophobia. No aura. History of similar a year ago treated in emergency room. States migraine-like symptoms. History of asthma. Denies history of gastric ulcers or kidney injury. Came from work due to worsening symptoms. Prior similar symptoms: Yes PFSH PFS Medical History Asthma GERD (gastroesophageal reflux disease) Home Medications meloxicam 15 mg PO DAILY 09/13/21 [History Last Taken Unknown] Allergy/AdvReac Type Severity Reaction Status Date / Time latex Allergy Rash Verified 09/13/21 07:12 azithromycin [From Zithromax] AdvReac Other Verified 09/13/21 07:12 Social History Smoking Status: Never smoker ROS ROS ED Constitutional Constitutional ED: Denies chills, fever(s) or sweats Eyes Eyes: Denies change in vision ENT ENT ED: Denies dysphagia or sore throat Cardiovascular Cardiovascular: Denies chest pain, leg edema, palpitations or racing heartbeat Respiratory/Chest Respiratory/Chest: Denies cough, dyspnea or dyspnea on exertion Gastrointestinal Gastrointestinal: Denies abdominal pain, diarrhea, nausea or vomiting Genitourinary Genitourinary ED: Denies dysuria, hematuria or urinary frequency Musculoskeletal Musculoskeletal: Denies back pain, extremity pain or neck pain Integumentary Denies rash or wounds Neurologic Neurologic: Reports headache(s); Denies paresthesias or weakness EXAM Physical Exam Const Vital Signs: 12/16/21 08:32 Temperature 97.3 F L Temperature Source Temporal Pulse Rate 80 Respiratory Rate 16 Blood Pressure 110/64 Blood Pressure Mean 79 Pulse Ox 100 Oxygen Delivery Method Room Air Positive well nourished and well developed General Appearance ED: well developed and NAD HEENT Reports moist mucous membranes normocephalic and atraumatic Eyes PERRL, EOMs intact bilaterally and conjunctivae normal General Eye ED: Yes normal appearance of both eyes Neck no lymphadenopathy and supple Neck Narrative: No meningismus General: Negative for tenderness Chest Wall Chest: Negative for tenderness Resp normal respiratory effort and normal air movement Effort and Inspection: symmetric chest movement; Negative for respiratory distress Cardio regular rate, regular rhythm and no murmurs Peripheral Pulses: pulses 2+ throughout GI normal to inspection, nondistended, normoactive bowel sounds and non-tender Palpation: Negative for guarding or rebound tenderness present Back/Spine no CVA tenderness and no thoracic nor lumbar tenderness Extremity normal to inspection General Extremety ED: Negative for edema or tenderness General Extremity: Negative for edema Neuro oriented x3, CN's II-XII intact bilaterally and no sensory deficits noted Sensorium / Orientation: awake and alert Skin no rashes or lesions noted and no wounds MDM MDM MDM Narrative Medical decision making narrative: EKG done per nursing protocol with his dizziness was normal. Is no focal neurological deficits. No meningismus. Treated with migraine cocktail Reglan Benadryl Toradol with IV fluids. Improvement of symptoms. Patient monitored due to driving here discharge when clinically stable. EKG Initial EKG: Attestation: I personally reviewed and interpreted this EKG as follows: Interpretation: Sinus Rhythm Comments: Sinus rate of 72, no ST or T wave changes. Discharge Plan Triage Chief Complaint: Dizziness ED Provider: Robby Roman Dx/Rx/DC Orders Clinical Impression: Headache, Near syncope Instructions: Self-Care for Headaches Prescriptions: No Action meloxicam 15 mg tablet 15 mg PO DAILY RF: 0 Primary Care Provider: Immanuel Champion Referrals: Immanuel Champion MD [Primary Care Provider] - 5-7 Days Disposition Disposition: Home, Self Care Discharge Date/Time: 12/16/21 11:38
--- NOTE | 2021-12-16 08:56 | EKG12_ITS ---
Test Reason : CHEST PAIN Blood Pressure : / mmHG Vent. Rate : 072 BPM Atrial Rate : 072 BPM P-R Int : 122 ms QRS Dur : 100 ms QT Int : 402 ms P-R-T Axes : 059 047 055 degrees QTc Int : 440 ms Normal sinus rhythm Normal ECG Confirmed by VASQUEZ GAMEZ, ISAIAH ([id number]), graphic editor LORENZO REDMOND ([id number]) on 12/21/2021 11:10:49 AM Referred By: MUNA Confirmed By:ISAIAH OVALLE MD
[2021-12-16] MEDS: 0.9% Normal Saline 1,000 ML 999 ML IV (08:59)
[2021-12-16] MEDS: Metoclopramide 10 MG/2 ML Vial IV (08:59)
[2021-12-16] MEDS: DiphenhydrAMINE 50 MG/ML Syringe 25 MG IV (09:00)
[2021-12-16] MEDS: Ketorolac 15 MG/ML Vial IV (09:01)
[2021-12-16 10:58] VITALS: BP 101/66; PULSE 13; RESP 73; O2SAT 99
[2021-12-16 11:35] VITALS: BP 107/62; PULSE 78; RESP 13; O2SAT 98
== END 2021-12-16 11:38 | disposition home or self-care (01) ==
PROVIDERS: Emergency Provider Emergency Medicine; PCP Family Medicine; Visit Provider Emergency Medicine
DX: R55 Syncope and collapse (principal); R42 Dizziness and giddiness; R51.9 Headache, unspecified; J45.909 Unspecified asthma, uncomplicated; K21.9 Gastro-esophageal reflux disease without esophagitis
CPT/HCPCS: 93005; 96361; 96374; 96375; 99284; J7030

== ENCOUNTER 2022-05-16 09:23 | Emergency (ER) | payer OTHER, SELFPAY ==
[2022-05-16 09:25] VITALS: BP 114/68; PULSE 62; RESP 16; TEMP 36.4; O2SAT 100; BMI 21.6
--- NOTE | 2022-05-16 10:06 | EKG12_ITS ---
Test Reason : CP Blood Pressure : / mmHG Vent. Rate : 060 BPM Atrial Rate : 060 BPM P-R Int : 130 ms QRS Dur : 092 ms QT Int : 412 ms P-R-T Axes : 049 056 070 degrees QTc Int : 412 ms Normal sinus rhythm Normal ECG Confirmed by YULY GAMEZ, VERONICA ([id number]), order editor FRACISCO DELANEY ([id number]) on 05/17/2022 9:31:12 AM Referred By: CORBIN Confirmed By:VERONICA EMERY MD
--- NOTE | 2022-05-16 10:07 | ED.VIS.CHEST ---
HPI History of Present Illness Chief Complaint: Chest Pain Detail of Chief Complaint: Chest pain that started at approximately 0800 while at work Informant: patient Onset/Context/Timing Onset: Hours Activity at onset: sudden and light activity Timing: Intermittent (Duration 1.5 hours) Quality: Positive for Heaviness Location: Substernal Current Severity: Gone Maximum Severity: Severe Worsened By: Nothing Relieved By: Nothing Associated Symptoms: Positive for Nausea, Diaphoresis and Dyspnea; Negative for Vomiting, Cough, Fever, Lightheadedness, Acid Reflux or Palpitations Narrative Narrative: Patient is a 41-year-old male. He reported having diarrhea at 03 100 and apparently had episode of diarrhea while in bed. He went to work. While at work he developed a midsternal chest discomfort radiating through to his back associated with dyspnea, nausea and diaphoresis. Duration of that chest pain was 1.5 hours. Nothing made it better or worse. He has no known history of coronary disease and has no medical problems. There is a paternal family history of cardiac disease at young age i.e. his father and paternal grandfather. He is a former smoker. He quit smoking 3 years ago. He began smoking at the age of 17. He denies drug use. He states occasionally have an alcoholic beverage. There is no history of VTE or risk factors. He denies leg pain, swelling Prior Similar Symptoms: No Recent Illness/Hospitalization: No CVD Risk Factors: Positive for Family History 1' </=55 and Smoking; Negative for Hypertension, Diabetes or Hypercholesterolemia PE Risk Factors: Negative for Recent Travel/Surgery, Recent Immobilization, Prior DVT or PE, Cancer or OCP + Smoking + >/=35 TAD Risk Factors: Negative for Marfan's Syndrome, Hypertension or Family History [facility] Medical History (Updated 05/16/22 @ 15:[address] Mann García MD) Asthma Chest pain GERD (gastroesophageal reflux disease) Home Medications meloxicam 15 mg tablet 15 mg PO DAILY 09/13/21 [History Last Taken Unknown] Allergy/AdvReac Type Severity Reaction Status Date / Time latex Allergy Rash Verified 05/16/22 09:28 azithromycin [From Zithromax] AdvReac Other Verified 05/16/22 09:28 Surgical History no surgical history no surgical history Social History (Updated 05/16/22 @ 10:[address] Mann García MD) household members: none Smoking Status: Former smoker alcohol intake: current substance use type: does not use ROS ROS ED Constitutional Constitutional ED: Denies chills, fever(s), subjective, sweats or weight loss Eyes Eyes: Reports none; Denies blurry vision, change in vision or diplopia ENT ENT ED: Denies ear pain, rhinorrhea or sore throat Cardiovascular Cardiovascular: Reports as per HPI; Denies orthopnea or paroxysmal nocturnal dyspnea Respiratory/Chest Respiratory/Chest: Reports dyspnea; Denies cough, dyspnea on exertion, orthopnea, paroxysmal nocturnal dyspnea or sputum Gastrointestinal Gastrointestinal: Reports diarrhea and nausea; Denies abdominal pain, constipation or vomiting Genitourinary Genitourinary ED: Denies dysuria, hematuria or urinary frequency Musculoskeletal Musculoskeletal: Denies arthralgias, back pain, myalgias or neck pain Integumentary Denies abscess, Abrasions or rash Neurologic Neurologic: Denies paresthesias or weakness Psychiatric Psychiatric: Denies anxiety or depression Endocrine Endocrinology: Denies cold intolerance or heat intolerance Hematologic/Lymphatic Hematologic/Lymphatic: Denies easy bleeding, easy bruising or lymphadenopathy EXAM Physical Exam Const Vital Signs: 05/16/22 09:25 05/16/22 10:12 05/16/22 10:15 Temperature 97.6 F L Temperature Source Temporal Pulse Rate 62 59 L Respiratory Rate 16 18 Respiratory Effort Normal Non-Labored Blood Pressure 114/68 114/57 L Blood Pressure Mean 83 76 Pulse Ox 100 100 Oxygen Delivery Method Room Air Room Air 05/16/22 12:08 05/16/22 12:52 Temperature Temperature Source Pulse Rate 55 L 62 Respiratory Rate 14 17 Respiratory Effort Blood Pressure 111/64 111/66 Blood Pressure Mean 79 81 Pulse Ox 100 99 Oxygen Delivery Method Room Air Room Air Positive well nourished and well developed General Appearance ED: well developed and NAD; Negative for pallor HEENT Reports TM's clear and moist mucous membranes HEENT Narrative: Ears normal. Nares patent. Mucosa moist. Teeth normal. Uvula midline. No erythema or exudate. No deviation tongue or protrusion. normocephalic and atraumatic Tympanic Membrane ED: Yes TM's clear Eyes PERRL and EOMs intact bilaterally General Eye ED: Negative for pale conjunctiva or scleral icterus Neck no lymphadenopathy, supple and no JVD Chest Wall inspection of chest normal and palpation of chest normal Chest Narrative: Patient complained of mild discomfort with palpation of the chest. Did not reproduce the discomfort he experienced at work. Resp normal respiratory effort and clear to auscultation bilaterally Effort and Inspection: Negative for respiratory distress or pain with movement Cardio regular rate, regular rhythm, S1 normal heart sound, S2 normal heart sound and no murmurs GI normal to inspection, nondistended, normoactive bowel sounds, soft to palpation, non-tender, non-distended and no masses; Negative for hepatosplenomegaly Back/Spine no CVA tenderness Extremity normal to inspection Extremity Narrative: There is no asymmetry, swelling, discoloration, leg vein distention, palpable cords or tenderness along the distribution of the deep venous system. Neuro oriented x3, CN's II-XII intact bilaterally, no sensory deficits noted and gait normal Sensorium / Orientation: awake and alert Motor Exam: strength 5/5 throughout Psych mental status grossly normal Skin no rashes or lesions noted and no wounds General Skin Exam: Negative for jaundice or pallor Heart Score History: Moderately Suspicious ECG: Normal Age: </= 45 years Risk Factors: 1 or 2 Risk Factors Troponin: </= Normal Limit Score: 2 MDM MDM MDM Narrative Medical decision making narrative: Patient presents with chest discomfort as well as diarrhea. Since patient has significant family history of cardiac disease at young age we will pursue a cardiac work-up which will include EKG, chest x-ray and appropriate blood work including 2-hour high-sensitivity troponin. With regards to the diarrhea this may represent viral or other cause. Since his abdominal exam is benign no imaging was obtained. Patient was reassessed at 1130. He had to be awakened for me to tell his results. He was told that a 2-hour troponin was pending and will make disposition after results are available. Lab Data Attestation: I reviewed the patient's lab results. Lab results narrative: Since the first troponin is greater than 3 a 2-hour troponin was ordered. The first troponin is normal. Basic metabolic panel is normal. CBC is normal. 2-hour troponin is 6 which is less than 7 and delta is 1. Therefore negative predictive value is 100% not cardiac. Will discharge to home Labs: Laboratory Results - last 24 hr 05/16/22 05/16/22 05/16/22 09:49 09:49 12:48 WBC 6.8 RBC 5.16 Hgb 14.4 Hct 43.2 MCV 83.7 MCH 27.9 MCHC 33.3 RDW Std Deviation 37.4 RDW Coeff of Manuel 12.4 Plt Count 308 MPV 9.2 Immature Gran % (Auto) 0.300 Neut % (Auto) 66.3 Lymph % (Auto) 22.7 [place] % (Auto) 7.1 Eos % (Auto) 3.2 Baso % (Auto) 0.4 Absolute Neuts (auto) 4.5 Absolute Lymphs (auto) 1.54 Nucleated RBC % 0 Sodium 140 Potassium 3.8 Chloride 107 Carbon Dioxide 29.0 Anion Gap 4 L BUN 18 Creatinine 1.06 Estim Creat Clear Calc 77.26 Est GFR (MDRD) Af Amer 99 Est GFR (MDRD) Non-Af 82 BUN/Creatinine Ratio 17.0 Glucose 88 Calcium 9.0 Troponin I High Sens 5 6 Radiography Chest X-Ray - ED: 2 View and Read by ED Physician (There are no acute changes. There is evidence of hyper aeration. Cardiac silhouette and size unremarkable. Perihilar region unremarkable. Osseous structures are unremarkable. There is no evidence of infiltrate or congestive heart failure. This was independently reviewed and interpreted by me a) Diagnostic Testing: Clinical Impression(s) from Imaging Studies Chest X-Ray 05/16/22 10:15 IMPRESSION: No demonstrated acute cardiopulmonary process. Electronically Signed: Aureliano Chandler MD at 10:37 EDT Reading Location ID and State: [facility] / [place] Tel , Service support , EKG Initial EKG: Attestation: I personally reviewed and interpreted this EKG as follows: Interpretation: Sinus Rhythm (EKG is normal. Ventricular rate is 60. NM interval is 130 ms. QS duration 92 ms. QT duration of 112 ms. [place] is normal.) Discharge Plan Triage Chief Complaint: Chest Pain ED Provider: Mann García Dx/Rx/DC Orders Clinical Impression: Midsternal chest pain Instructions: ED Chest Pain, Noncardiac Prescriptions: No Action meloxicam 15 mg tablet 15 mg PO DAILY Label Comments: TAKE 1 TABLET BY MOUTH DAILY WITH A MEAL Primary Care Provider: Immanuel Champion Referrals: Immanuel Champion MD [Primary Care Provider] - 3-5 Days if not improving Disposition Disposition: Home, Self Care
[2022-05-16 10:12] VITALS: BP 114/57; PULSE 59; RESP 18; O2SAT 100
--- NOTE | 2022-05-16 10:15 | RAD_ITS ---
STUDY: X-RAY CHEST REASON FOR EXAM: Male, 41 years old. chest pain TECHNIQUE: Frontal and lateral views of the chest. COMPARISON: 09/18/2018. FINDINGS: Subpleural nodular opacities in the lung apices suggesting pleuroparenchymal scarring. There is no demonstrated pleural abnormality. Normal size heart. Normal mediastinum and naomi. Normal visualized pulmonary arteries. Normal visualized aortic arch and descending thoracic aorta. Normal visualized thoracic spine. Normal visualized ribs, clavicles, and shoulders. There is no demonstrated abnormality of the visualized soft tissue structures of the upper abdomen. RAD/Chest PA and Lateral IMPRESSION: No demonstrated acute cardiopulmonary process. Electronically Signed: Aureliano Chandler MD at 10:37 EDT ,
[2022-05-16] MEDS: Aspirin 81 MG TAB.CHEW 324 MG PO (10:16)
[2022-05-16 10:44] LABS: Absolute Lymphocyte Count 1.54 X10^3/uL (0.83-4.51); Absolute Neutrophil Count 4.5 X10^3/uL (2.0-7.7); Basophil# 0.03 X10^3/uL; Basophil% 0.4 % (0-1); Eosinophil# 0.22 X10^3/uL; Eosinophils% 3.2 % (0-5); Hematocrit 43.2 % (40-54); Hemoglobin 14.4 g/dL (13.0-16.5); Lymphocyte # 1.54 X10^3/ul (0.83-4.51); Lymphocyte % 22.7 % (19-41); Mean Corp Hgb Conc 33.3 g/dL (32-36); Mean Corpuscular Hgb 27.9 pg (27.0-32.0); Mean Corpuscular Volume 83.7 fL (80-94); Mean Platelet Vol. 9.2 fl (6.2-12.0); Monocyte# 0.48 X10^3/uL; Monocyte% 7.1 % (0-10); NRBC Flagged by Analyzer 0 % (0-5); Neutrophil # 4.49 X10^3/uL (2.7-7.7); Neutrophil % 66.3 % (47-70); Platelet Count 308 K/mm3 (150-450); RBC Distribution Width CV 12.4 % (11.6-14.6); RBC Distribution Width SD 37.4 fl (35.1-43.9); Red Blood Count 5.16 M/mm3 (4.6-6.2); White Blood Count 6.8 K/mm3 (4.4-11.0)
[2022-05-16 11:01] LABS: Anion Gap 4 (5-15); BUN 18 mg/dL (7-18); Chloride 107 mmol/L (98-107); Creatinine, Serum 1.06 mg/dL (0.70-1.30); EST Glomerular Filtration Rate 82 mL/min (>60); Est Glom Filt Rate - Afr Amer 99 mL/min (>60); Estimated Creatinine Clearance 77.26 ml/min; Glucose 88 mg/dL (74-106); Potassium 3.8 mmol/L (3.5-5.1); Sodium Level 140 mmol/L (136-145); Troponin-I HS (w/2H Reflex) 5 pg/mL (3.0-78.0)
[2022-05-16 12:08] VITALS: BP 111/64; PULSE 55; RESP 14; O2SAT 100
[2022-05-16 12:21] LABS: Reflex Troponin-HS? (from REC) Y
[2022-05-16 12:52] VITALS: BP 111/66; PULSE 62; RESP 17; O2SAT 99
[2022-05-16 13:15] LABS: Troponin-I HS 6 pg/mL (3.0-78.0)
[2022-05-16 14:00] VITALS: BP 111/64; PULSE 51; RESP 12; O2SAT 97
[2022-05-16 15:00] VITALS: BP 115/63; PULSE 52; RESP 18; O2SAT 95
== END 2022-05-16 15:17 | disposition home or self-care (01) ==
PROVIDERS: Emergency Provider Emergency Medicine; PCP Family Medicine; Visit Provider Emergency Medicine
DX: R07.2 Precordial pain (principal); R19.7 Diarrhea, unspecified; Z87.891 Personal history of nicotine dependence; R06.00 Dyspnea, unspecified; R11.0 Nausea; K21.9 Gastro-esophageal reflux disease without esophagitis; J45.909 Unspecified asthma, uncomplicated
CPT/HCPCS: 71046; 80048; 84484; 85025; 93005; 99285; A4216

== ENCOUNTER 2022-08-28 11:24 | Emergency (ER) | payer OTHER, SELFPAY ==
[2022-08-28 11:25] VITALS: BP 106/64; PULSE 79; RESP 14; TEMP 36.6; O2SAT 100; BMI 21.6
--- NOTE | 2022-08-28 12:09 | EKG12_ITS ---
Test Reason : DIZZY Blood Pressure : / mmHG Vent. Rate : 068 BPM Atrial Rate : 068 BPM P-R Int : 144 ms QRS Dur : 086 ms QT Int : 376 ms P-R-T Axes : 067 062 067 degrees QTc Int : 399 ms Normal sinus rhythm Normal ECG Confirmed by VASQUEZ GAMEZ, ISAIAH ([id number]), editor newspaper JYOTSNA ZAMORA ([id number]) on 08/30/2022 10:16:06 AM Referred By: LINDA Confirmed By:ISAIAH OVALLE MD
--- NOTE | 2022-08-28 12:17 | EX.ED.DYSGE1 ---
HPI History of Present Illness Chief Complaint: Dizziness Informant: patient Onset/Context/Timing Onset: Today Context: Sudden Onset Timing: Continuous Quality: Dizzy, lightheaded Location: Generalized Worsened by: Nothing Relieved by: Nothing Narrative Narrative: Patient presents with back and chest pain that began today while he was at work. Patient states the pain started in his low back and went up into his chest. Patient states he started to feel dizzy and lightheaded after this. Patient states his symptoms came on suddenly. Patient dates nothing makes them better nothing makes them worse. Patient does admit to a sore throat. Patient denies any fevers or chills. Patient denies any cough or shortness of breath. Patient denies any sick contacts. [facility] Medical History Asthma Chest pain GERD (gastroesophageal reflux disease) Home Medications meloxicam 15 mg tablet 15 mg PO DAILY 09/13/21 [History Last Taken Unknown] Allergy/AdvReac Type Severity Reaction Status Date / Time latex Allergy Rash Verified 08/28/22 11:27 azithromycin [From Zithromax] AdvReac Other Verified 08/28/22 11:27 Surgical History no surgical history no surgical history Social History household members: none Smoking Status: Former smoker alcohol intake: current substance use type: does not use ROS ROS ED Constitutional Constitutional ED: Denies chills or fever(s) Eyes Eyes: Denies blurry vision or change in vision ENT ENT ED: Reports sore throat; Denies rhinorrhea Cardiovascular Cardiovascular: Reports chest pain; Denies palpitations Respiratory/Chest Respiratory/Chest: Denies cough or dyspnea Gastrointestinal Gastrointestinal: Denies nausea or vomiting Genitourinary Genitourinary ED: Denies dysuria or hematuria Musculoskeletal Musculoskeletal: Reports back pain; Denies neck pain Integumentary Denies abscess or rash Neurologic Neurologic: Denies headache(s) or weakness Allergic/Immunologic Allergic/Immunologic ED: Denies mouth swelling or urticaria EXAM Physical Exam Const Vital Signs: 08/28/22 11:25 08/28/22 11:50 08/28/22 13:08 Temperature 97.8 F Temperature Source Temporal Pulse Rate 79 Pulse Rate [Lying] 63 Pulse Rate [Sitting (for 1 minute prior to obtaining)] 61 Pulse Rate [Standing (for 1 minute prior to obtaining)] 67 Respiratory Rate 14 Respiratory Effort Normal Non-Labored Blood Pressure 106/64 Blood Pressure [Lying] 99/60 Blood Pressure [Sitting (for 1 minute prior to obtaining)] 98/65 Blood Pressure [Standing (for 1 minute prior to obtaining)] 102/71 Blood Pressure Mean 78 Blood Pressure Mean [Lying] 73 Blood Pressure Mean [Sitting (for 1 minute prior to obtaining)] 76 Blood Pressure Mean [Standing (for 1 minute prior to obtaining)] 81 Pulse Ox 100 Oxygen Delivery Method Room Air Positive well nourished and well developed General Appearance ED: well developed and NAD HEENT Reports moist mucous membranes Neck supple and no JVD Resp normal respiratory effort and clear to auscultation bilaterally Cardio regular rate, regular rhythm and no murmurs GI normal to inspection, nondistended, normoactive bowel sounds and non-tender Palpation: soft Extremity normal to inspection General Extremety ED: Negative for edema or tenderness General Extremity: Negative for edema Neuro oriented x3, CN's II-XII intact bilaterally and no sensory deficits noted Sensorium / Orientation: alert Motor Exam: strength 5/5 throughout Psych mental status grossly normal Skin no rashes or lesions noted MDM MDM MDM Narrative Medical decision making narrative: EKG was obtained. On my interpretation, it showed a normal sinus rhythm with a rate of 68. [place] interval, QRS interval, and QTc intervals were all normal. [place] was normal. There are no acute ST or T wave changes. Patient was given IV fluids and Tylenol. CBC was within normal limits. Comprehensive metabolic profile showed a mild hypokalemia of 3.3. Otherwise it was within normal limits. COVID-19 rapid antigen was obtained and was negative. Influenza A and influenza B antigens were obtained and were negative. Patient is feeling better on reevaluation. Patient was advised of his findings. Patient was instructed to drink plenty of fluids. Patient was instructed to take Tylenol or ibuprofen as needed for any pain or fevers. Patient was instructed to follow-up with his primary care physician in 5 to 7 days. Patient understood and was agreeable with the plan. All questions were answered. Lab Data Attestation: I reviewed the patient's lab results. Labs: Laboratory Results - last 24 hr 08/28/22 08/28/22 12:25 12:25 WBC 11.0 RBC 4.90 Hgb 13.8 Hct 41.0 MCV 83.7 MCH 28.2 MCHC 33.7 RDW Std Deviation 38.3 RDW Coeff of Manuel 12.6 Plt Count 248 MPV 8.9 Immature Gran % (Auto) 0.500 Neut % (Auto) 81.2 H Lymph % (Auto) 10.9 L [place] % (Auto) 6.6 Eos % (Auto) 0.5 Baso % (Auto) 0.3 Absolute Neuts (auto) 8.9 H Absolute Lymphs (auto) 1.20 Nucleated RBC % 0 Sodium 138 Potassium 3.3 L Chloride 105 Carbon Dioxide 28.0 Anion Gap 5 BUN 14 Creatinine 1.04 Estim Creat Clear Calc 78.75 Est GFR (MDRD) Af Amer 101 Est GFR (MDRD) Non-Af 84 BUN/Creatinine Ratio 13.5 Glucose 107 H Calcium 8.5 Total Bilirubin 0.40 AST 10 L ALT 24 Alkaline Phosphatase 66 Total Protein 6.7 Albumin 3.4 Globulin 3.3 Albumin/Globulin Ratio 1.0 Radiography Chest X-Ray - ED: 1 View, Read by ED Physician and Read by Radiologist Diagnostic Testing: Clinical Impression(s) from Imaging Studies Chest X-Ray 08/28/22 12:35 IMPRESSION: Normal x-ray examination of the chest. Electronically Signed: Sabino Hayes MD at 12:45 EST Reading Location ID and State: [address] [place] [address] , Service support , EKG Initial EKG: Attestation: I personally reviewed and interpreted this EKG as follows: Interpretation: Sinus Rhythm (68) and No Acute Injury Pattern Prior EKG tracings: available for review Prior: Unchanged (05/16/2022) Discharge Plan Triage Chief Complaint: Dizziness ED Provider: Blane Tyler Dx/Rx/DC Orders Clinical Impression: Viral illness, Dizziness of unknown cause Instructions: ED Viral Syndrome (Adult) Prescriptions: No Action meloxicam 15 mg tablet 15 mg PO DAILY Label Comments: TAKE 1 TABLET BY MOUTH DAILY WITH A MEAL Primary Care Provider: Immanuel Champion Referrals: Immanuel Champion MD [Primary Care Provider] - 3-5 Days Disposition Disposition: Home, Self Care Discharge Date/Time: 08/28/22 13:56
[2022-08-28] MEDS: 0.9% Normal Saline 1,000 ML 1000 ML IV (12:33)
[2022-08-28] MEDS: Acetaminophen 500 MG Tablet 1000 MG PO (12:33)
--- NOTE | 2022-08-28 12:35 | RAD_ITS ---
STUDY: X-RAY CHEST REASON FOR EXAM: Male, 41 years old. Chest pain TECHNIQUE: Single AP portable view of the chest. COMPARISON: Comparison is made with prior study dated 05/16/2022. FINDINGS: EKG electrodes are seen. The lungs are clear and expanded. There is no demonstrated pleural abnormality. Normal size heart. Normal mediastinum and naomi. Normal visualized pulmonary arteries. Normal visualized aortic arch and descending thoracic aorta. Normal visualized thoracic spine. Normal visualized ribs, clavicles, and shoulders. There is no demonstrated abnormality of the visualized soft tissue structures of the upper abdomen. RAD/Chest 1 View (Portable) IMPRESSION: Normal x-ray examination of the chest. Electronically Signed: Sabino Hayes MD at 12:45 EST ,
[2022-08-28 12:36] LABS: Absolute Neutrophil Count 8.9 X10^3/uL (2.0-7.7); Basophil# 0.03 X10^3/uL; Basophil% 0.3 % (0-1); Eosinophil# 0.06 X10^3/uL; Eosinophils% 0.5 % (0-5); Hemoglobin 13.8 g/dL (13.0-16.5); Lymphocyte % 10.9 % (19-41); Mean Corp Hgb Conc 33.7 g/dL (32-36); Mean Corpuscular Hgb 28.2 pg (27.0-32.0); Mean Corpuscular Volume 83.7 fL (80-94); Mean Platelet Vol. 8.9 fl (6.2-12.0); Monocyte# 0.73 X10^3/uL; Monocyte% 6.6 % (0-10); NRBC Flagged by Analyzer 0 % (0-5); Neutrophil # 8.93 X10^3/uL (2.7-7.7); Neutrophil % 81.2 % (47-70); Platelet Count 248 K/mm3 (150-450); RBC Distribution Width CV 12.6 % (11.6-14.6); RBC Distribution Width SD 38.3 fl (35.1-43.9)
[2022-08-28 12:53] LABS: AST(SGOT) 10 U/L (15-37); Alanine Aminotransfer ALT/SGPT 24 U/L (16-61); Albumin, Serum 3.4 g/dL (3.2-5.0); Alkaline Phosphatase 66 U/L (45-117); Anion Gap 5 (5-15); BUN 14 mg/dL (7-18); BUN/Creat Ratio 13.5 RATIO (10-20); Calcium,Total 8.5 mg/dL (8.5-10.1); Chloride 105 mmol/L (98-107); Creatinine, Serum 1.04 mg/dL (0.70-1.30); EST Glomerular Filtration Rate 84 mL/min (>60); Est Glom Filt Rate - Afr Amer 101 mL/min (>60); Estimated Creatinine Clearance 78.75 ml/min; Globulin 3.3 g/dL (2.2-4.2); Glucose 107 mg/dL (74-106); Potassium 3.3 mmol/L (3.5-5.1); Protein, Total 6.7 g/dL (6.4-8.2); Sodium Level 138 mmol/L (136-145)
[2022-08-28 13:08] VITALS: BP 102/71; BP 98/65; BP 99/60; PULSE 61; PULSE 63; PULSE 67
== END 2022-08-28 13:56 | disposition home or self-care (01) ==
PROVIDERS: Emergency Provider Emergency Medicine; PCP Family Medicine; Visit Provider Emergency Medicine
DX: R42 Dizziness and giddiness (principal); B34.9 Viral infection, unspecified; R07.9 Chest pain, unspecified; J45.909 Unspecified asthma, uncomplicated; M54.9 Dorsalgia, unspecified; Z87.891 Personal history of nicotine dependence
CPT/HCPCS: 71045; 80053; 85025; 87428; 93005; 96360; 99283; J7030

== ENCOUNTER → 2023-08-07 | Outpatient (CLI) | payer OTHER, SELFPAY ==
--- NOTE | 2023-08-06 | IMM_PTH ---
PATIENT: JOSE MIGUEL COLEMAN LOC: [facility] U#:[id number] AGE/SX: 42/M ROOM: RE08/07/[address]: Dr. Robbie Carroll MD : 1980 BED: DIS: 08/07/2023 SPEC #: [id number] RECD: 08/07/23 14:24 STATUS: HATTIE REQ #: [id number] MEERA: 08/06/23 00:[address]: Robbie Carroll DEPT: IMMUNOHISTOCHEMISTRY RECD BY: Ling Ghosh ENTERED: 08/07/23 14:28 SP TYPE: IMMUNO OTHR DR: Dr. Immanuel Champion MD Tissues: B - Stomach, NOS Procedures: H Pylori (initial) PHYSICIAN & INSTITUTION [place] [id number] SPECIMEN INFORMATION: Tissue Source: B - Antrum Clinical Info: Dysphagia, GERD Specimen Number: [id number] CPT code: 83783 METHODOLOGY: Deparaffinized sections of prefer/formalin-fixed tissue or PAP/DQ stained slides are incubated with monoclonal/polyclonal antibodies/oligonucleotide probes. Localization is made via biotin free immunoperoxidase method. Appropriate controls are performed and reacted as expected. Results on target cell population are indicated in the following table: RESULTS: ANTIBODY / CLONE RESULT Block B H Pylori (polyclonal) positive These tests were developed and their performance characteristics determined by [facility]. They may not have been cleared or approved by the U.S. Food and Drug Administration. The FDA has determined that such clearance or approval is not necessary. The above immunohistochemical/dualISH markers are ordered and reviewed by the Pathologist. INTERPRETATION: B. Antrum, biopsy: Positive abundant Helicobacter pylori organisms. AM:madelyn 08/08/2023
--- NOTE | 2023-08-06 | GASB_PTH ---
PATIENT: JOSE MIGUEL COLEMAN LOC: [facility] U#:[id number] AGE/SX: 42/M ROOM: RE08/07/[address]: Dr. Robbie Carroll MD : 1980 BED: DIS: 08/07/2023 SPEC #: [id number] RECD: 08/07/23 11:48 STATUS: HATTIE REQueta #: [id number] MEERA: 08/06/23 00:[address]: Robbie Carroll DEPT: SURGICAL PATHOLOGY RECD BY: Robby Barrera ENTERED: 08/07/23 11:49 SP TYPE: Gastric Bx OTHR DR: Dr. Immanuel Champion MD Tissues: A - Duodenum, NOS B - Gastric mucous membrane C - Esophageal mucous membrane D - Esophageal mucous membrane Procedures: Surgery Specimen Level IV HEADER OPERATION: Endoscopy PRE-OP DIAGNOSIS: Dysphagia, GERD TISSUE SUBMITTED: A - Duodenum biopsy, B - Antral biopsy for H/H, C - Distal esophageal biopsy, D - Mid esophageal biopsy MICROSCOPIC DIAGNOSIS A. Duodenum, biopsy: No pathologic change. B. Gastric antrum, biopsy: Chronic active gastritis. Positive for abundant H. pylori organisms. See comment. C. Distal esophagus, biopsy: Fragments of benign squamous mucosa. No evidence of inflammation. D. Mid esophagus, biopsy: Fragments of benign squamous mucosa. No evidence of inflammation. AM:madelyn 08/08/2023 COMMENT B. The results of immunohistochemistry for Helicobacter pylori will be reported separately ([id number]). MICROSCOPIC DESCRIPTION Slides are reviewed. GROSS DESCRIPTION A - Received in fixative is one container labeled with the patient's name and designated duodenum biopsy. The specimen consists of one irregular fragment of light tang soft tissue that measures 0.5 x 0.5 x 0.1 cm. The specimen is totally submitted in one cassette. B - Received in fixative is one container labeled with the patient's name and designated antral biopsy. The specimen consists of one irregular fragment of light tang soft tissue that measures 0.7 x 0.2 x 0.1 cm. The specimen is totally submitted in one cassette. C - Received in fixative is one container labeled with the patient's name and designated distal esophagus. The specimen consists of two irregular fragments of light tang soft tissue that in aggregate measure 0.8 x 0.7 x 0.1 cm. The specimen is totally submitted in one cassette. D - Received in fixative is one container labeled with the patient's name and designated mid esophagus biopsy. The specimen consists of one irregular fragment of light tang soft tissue that measures 0.5 x 0.5 x 0.1 cm. The specimen is totally submitted in one cassette. / AM:madelyn 08/07/2023 TC:3 CPT: 39598 x4
== END | disposition home or self-care (01) ==
LOC: LABSPEC 10:35
PROVIDERS: PCP Family Medicine; Visit Provider Surgery
DX: R13.10 Dysphagia, unspecified (principal); K21.9 Gastro-esophageal reflux disease without esophagitis
CPT/HCPCS: 88305; 88342

== ENCOUNTER 2025-03-17 08:07 | Emergency (ER) | payer OTHER, SELFPAY ==
[2025-03-17 08:07] VITALS: BP 97/57; PULSE 58; RESP 16; TEMP 36; O2SAT 98; BMI 20.4
--- NOTE | 2025-03-17 08:38 | EX.ED.VIS.HA ---
HPI History of Present Illness Chief Complaint: Headache Narrative Narrative: 44-year-old male past medical history of migraine headaches presents with headache that he has had for the last 3 days. Its associated with nausea but no vomiting, no prior aura, no visual disturbance, no paresthesias. He states is typical of his previous headaches. He was given a prescription for migraine headaches by his primary care provider in the past but states he is unable to take it because if he takes it at work, it knocks him out within 30 minutes. Additionally, he states he usually takes Tylenol rapid relief of 1000 mg which usually alleviates his headache but did not today. He has not had to come to the emergency department for quite some time, and states he usually does well with a migraine cocktail. However he drove himself here today. He presents with migraine type headache with mild photophobia typical of his previous migraines. [facility] Medical History (Updated 03/17/25 @ 10:36 by Shaw Daniels MD) Migraines Chest pain GERD (gastroesophageal reflux disease) Asthma Home Medications ?Medication ?Instructions ?Recorded ?Last Taken ?Type meloxicam 15 mg tablet 15 mg PO DAILY 09/13/21 Unknown History Allergy/AdvReac Type Severity Reaction Status Date / Time latex Allergy Rash Verified 08/28/22 11:27 azithromycin (From Zithromax) AdvReac Other Verified 08/28/22 11:27 Social History household members: none Smoking Status: Former smoker alcohol intake: current substance use type: does not use ROS ROS ED ROS Narrative Review of systems positive for headache on bilateral temples and all over head. No fevers or chills. Positive nausea but no vomiting. No paresthesias, no aura. Mild photophobia. No disturbance. EXAM Physical Exam Narrative Exam Narrative: Afebrile. Vital signs noted. Nontoxic-appearing. Cardiovascular examination reveals regular rate and rhythm with intermittent bradycardia. Lungs are clear to auscultation bilaterally. Abdomen soft, nontender, with normal active bowel sounds. No guarding or rebound. Neurological examination nonfocal, nonlateralizing, sitting in a darkened room. PERRL, EOMI. DTRs, patellar, equal and symmetric. Moves all extremities. Awake, alert, interactive. Const Vital Signs: 03/17/25 08:07 03/17/25 10:07 Temperature 96.8 F L Temperature Source Temporal Pulse Rate 58 L Respiratory Rate 16 Blood Pressure 97/57 L 102/68 Blood Pressure Mean 70 79 Pulse Ox 98 100 Oxygen Delivery Method Room Air Room Air MDM MDM MDM Narrative Medical decision making narrative: Differential diagnosis includes but not limited to mild dehydration versus migraine headache, recurrent versus tension headache. I do not feel he requires CT imaging of the brain as he has a normal neurological examination. I do not feel he requires laboratory work. He will be bolused IV fluids, and administered Reglan and Toradol. Review of his prior ED visits show that he did well with Reglan, Toradol, and Benadryl and IV fluids previously from a visit in 2021. Upon repeat examination at approximately 10:35 AM, patient feels improved and states that essentially his headache is gone. He was able to ambulate to the bathroom without difficulty. At this point in time, I feel he can be discharged to follow-up with his primary care provider. He was told that should his headaches become more frequent that he may need referral to a neurologist. Return instructions to the emergency department were reviewed. Disposition is discharged home in improved and stable condition. History & Record Review Discussion w/independent historian: Patient Additional record(s) reviewed:: Prior ED visit (Prior migraine cocktail with Reglan) Discharge Plan Triage Chief Complaint: Headache ED Provider: Shaw Daniels Dx/Rx/DC Orders Clinical Impression: Migraine headache, Headache Instructions: ED Headache Unspecified, ED, Migraine (Classical) Prescriptions: No Action meloxicam 15 mg tablet 15 mg PO DAILY Patient Comments: TAKE 1 TABLET BY MOUTH DAILY WITH A MEAL Primary Care Provider: Immanuel Champion Referrals: Immanuel Champion MD [Primary Care Provider] - As soon as possible Activity Restrictions/Additional Instructions: Follow-up with your primary care provider when possible. You may need follow-up with a neurologist should your headaches become more frequent. Print Language: Citizen Of [place] Disposition Disposition: Home, Self Care
[2025-03-17] MEDS: Ketorolac 30 MG/ML Syringe IV (08:50)
[2025-03-17] MEDS: 0.9% Normal Saline (1000mL) 1,000 ML 999 ML IV (08:50)
[2025-03-17 10:07] VITALS: BP 102/68; O2SAT 100
[2025-03-17 10:47] VITALS: BP 102/68; PULSE 58; RESP 16; TEMP 36; O2SAT 100
== END 2025-03-17 10:48 | disposition home or self-care (01) ==
PROVIDERS: Emergency Provider Emergency Medicine; PCP Family Medicine; Visit Provider Emergency Medicine
DX: G43.909 Migraine, unspecified, not intractable, without status migrainosus (principal); Z87.891 Personal history of nicotine dependence
CPT/HCPCS: 96361; 96374; 96375; 96376; 99283; A4216

== ENCOUNTER 2025-05-05 17:21 | Emergency (ER) | payer SELFPAY ==
[2025-05-05] VITALS (8 sets, daily range): BP systolic 93–128; BP diastolic 54–93; PULSE 96–132; RESP 16–27; TEMP 37.2–39.1; O2SAT 96–100; BMI 20.7
--- NOTE | 2025-05-05 18:05 | EKG12_ITS ---
Test Reason : Blood Pressure : */* mmHG Vent. Rate : 93 BPM Atrial Rate : 93 BPM P-R Int : 138 ms QRS Dur : 88 ms QT Int : 324 ms P-R-T Axes : 68 24 60 degrees QTcB Int : 402 ms Normal sinus rhythm Normal ECG Confirmed by JULIA MALDONADO ([id number]), news copy editor FRACISCO DELANEY ([id number]) on 05/06/2025 1:51:37 PM Referred By: TB Confirmed By: JULIA MALDONADO
[2025-05-05] MEDS: 0.9% Normal Saline (1000mL) 1,000 ML 999 ML IV ×2 (18:26→21:08)
[2025-05-05 18:35] LABS: Hematocrit 42.9 % (40-54); Hemoglobin 15.1 g/dL (13.0-16.5); Immature Granulocytes Count 0.020 X10^3/uL (0.0-0.0); Mean Corp Hgb Conc 35.2 g/dL (32-36); Mean Corpuscular Volume 83.5 fL (80-94); Mean Platelet Vol. 8.5 fl (6.2-12.0); NRBC Flagged by Analyzer 0 % (0-5); POSITIVE DIFFERENTIAL YES; Platelet Count 285 K/mm3 (150-450); RBC Distribution Width CV 12.0 % (11.6-14.6); RBC Distribution Width SD 36.6 fl (35.1-43.9); Red Blood Count 5.14 M/mm3 (4.6-6.2); White Blood Count 9.1 K/mm3 (4.4-11.0)
--- NOTE | 2025-05-05 18:35 | RAD_ITS ---
PROCEDURE: CHEST PA AND LATERAL 05/05/2025 REASON FOR EXAM: SOB TECHNIQUE: CHEST PA AND LATERAL COMPARISON: 08/28/2022 FINDINGS: Lungs/Pleura: Clear. No airspace consolidation, pneumothorax or pleural effusion. Heart/Mediastinum: Normal in size. Bones/Soft tissues: Unremarkable. RAD/Chest PA and Lateral IMPRESSION: No acute cardiopulmonary disease. Reading Location: [id number]
[2025-05-05 18:43] LABS: Partial Thromboplast Time 27.7 Seconds (24.1-36.2); Prothrombin Time (Protime)PT. 13.4 SECONDS (11.7-14.9)
--- NOTE | 2025-05-05 18:49 | EX.ED.DYSGE1 ---
HPI History of Present Illness Chief Complaint: Asthma Narrative Narrative: Patient is a 44-year-old male with past medical history of GERD, asthma who presented to the emergency department the chief complaint of cough, shortness of breath and wheezing. Patient states that yesterday he started to come down with a illness and states that today while at work this progressively worsened prompting him to go home early from work. He states that overall he feels under the weather. He states that multiple of his family members have similar symptoms. He states that he was using his inhaler at home but denies any recent steroid use. [facility] Medical History Migraines Chest pain GERD (gastroesophageal reflux disease) Asthma Home Medications ?Medication ?Instructions ?Recorded ?Last Taken ?Type meloxicam 15 mg tablet 15 mg PO DAILY 09/13/21 Unknown History albuterol sulfate 90 mcg/actuation 2 puff inhalation Q6H PRN 05/05/25 Unknown Rx aerosol inhaler (Ventolin HFA) shortness of breath or wheezing #6.7 grams prednisone 50 mg tablet 50 mg PO DAILY 5 days #5 tabs 05/05/25 Unknown Rx Allergy/AdvReac Type Severity Reaction Status Date / Time latex Allergy Rash Verified 05/05/25 17:24 azithromycin (From Zithromax) AdvReac Other Verified 05/05/25 17:24 Social History household members: none Smoking Status: Former smoker alcohol intake: current substance use type: does not use ROS ROS ED ROS Narrative Constitutional: Complains of chills denies any fevers Eyes: Denies double vision Cardiovascular: Denies chest pain Respiratory: Complains of cough but denies sputum production complains of shortness of breath and wheezing Abdomen: Denies nausea vomiting diarrhea abdominal pain : Denies urinary symptoms Neurological: Denies any numbness, wheeze, tingling Musculoskeletal: Denies back pain Skin: Denies any rashes or lesions EXAM Physical Exam Narrative Exam Narrative: General: Patient is lying in bed resting comfortably in bed Head: Atraumatic, normocephalic Eyes: PERRL bilateral, EOMI bilateral, no conjunctival injection noted Neck: Soft, supple, trachea midline Cardiovascular: Patient tachycardic with a regular rhythm Respiratory: Patient has diffuse end expiratory wheezing noted bilaterally Abdomen: No tenderness to palpation, soft, nondistended Extremities: +5/5 strength noted in the bilateral upper and lower extremities Neurological: Patient commands knew that he was at [facility] years 2024 Skin: Warm, dry, tact no rashes or lesions noted Const Vital Signs: 05/05/25 17:22 05/05/25 17:50 05/05/25 18:54 Temperature 102.4 F H Temperature Source Oral Pulse Rate 120 H 132 H Respiratory Rate 16 22 H Respiratory Effort Short of Breath Respiratory Depth Deep Respiratory Pattern Normal Tachypnea Blood Pressure 128/93 H Blood Pressure Mean 104 Pulse Ox 98 Oxygen Delivery Method Room Air Room Air 05/05/25 19:03 05/05/25 19:34 05/05/25 20:00 Temperature 100.4 F H 99.5 F H Temperature Source Oral Oral Pulse Rate 114 H 105 H Respiratory Rate 27 H 18 Respiratory Effort Respiratory Depth Respiratory Pattern Blood Pressure 113/68 93/54 L Blood Pressure Mean 83 67 Pulse Ox 99 98 Oxygen Delivery Method Simple Mask Room Air Room Air 05/05/25 21:00 Temperature 99.8 F H Temperature Source Oral Pulse Rate 97 Respiratory Rate 19 H Respiratory Effort Respiratory Depth Respiratory Pattern Blood Pressure 97/56 L Blood Pressure Mean 69 Pulse Ox 96 Oxygen Delivery Method Room Air MDM MDM MDM Narrative Medical decision making narrative: Patient is a 44-year-old male who presented to the emergency department chief complaint of asthma exacerbation and fever and chills. On the differential diagnosis includes but not limited to pneumonia, pneumothorax, respiratory infection secondary viral etiology, asthma exacerbation. Patient be given 30 cc/kg bolus of IV fluids which was ordered at 1805. Patient be given 3 DuoNebs, Solu-Medrol and a gram of Tylenol for his fever. Patient CBC reviewed showed no evidence leukocytosis white blood count over 9.1, hemoglobin was noted be 15.1, plate count of 285. Patient's sodium was noted be normal at 140, potassium of 4.1, creatinine normal at 1.09. Patient's lactic acid less than 1, AST and ALT were 19 and 13 respectively. Patient urinalysis reviewed showed no evidence of infection. Patient's chest x-ray reviewed by myself by radiology showed no acute cardiopulmonary processes. Patient ambulated well here in the emergency department no hypoxia no tachycardia. He will be given a prescription for an inhaler as well as prednisone for the next 5 days. He is advised to rotate Tylenol and ibuprofen [id number]. He is requesting work note which was given. He would like to go home at this point in time all question concerns answered he was discharged home in stable condition. Lab Data Labs: Laboratory Results - last 24 hr 05/05/25 05/05/25 05/05/25 17:40 18:18 19:36 WBC 9.1 RBC 5.14 Hgb 15.1 Hct 42.9 MCV 83.5 MCH 29.4 MCHC 35.2 RDW Std Deviation 36.6 RDW Coeff of Manuel 12.0 Plt Count 285 MPV 8.5 Immature Gran % (Auto) 0.200 Neut % (Auto) 83.0 H Lymph % (Auto) 5.7 L [place] % (Auto) 6.3 Eos % (Auto) 4.6 Baso % (Auto) 0.2 Absolute Neuts (auto) 7.5 Absolute Lymphs (auto) 0.52 L Nucleated RBC % 0 PT 13.4 INR 1.0 APTT 27.7 Sodium 140 Potassium 4.1 Chloride 103 Carbon Dioxide 25.9 Anion Gap 12 BUN 12 Creatinine 1.09 Estim Creat Clear Calc 69.83 Est GFR (MDRD) Non-Af 86 BUN/Creatinine Ratio 11.4 Glucose 102 H Lactic Acid < 1.0 Calcium 9.7 Total Bilirubin 0.42 AST 19 ALT 13 Alkaline Phosphatase 78 Total Protein 7.5 Albumin 4.5 Globulin 3.0 Albumin/Globulin Ratio 1.5 Urine Color Yellow Urine Clarity Clear Urine pH 7.0 Ur Specific [place] 1.010 Urine Protein Negative Urine Glucose (UA) Normal Urine Ketones Negative Urine Occult Blood 10 H Urine Nitrite Negative Urine Bilirubin Negative Urine Urobilinogen Normal Ur Leukocyte Esterase Negative Urine RBC 0-5 SEEN Urine WBC 0-5 SEEN Ur Squamous Epith Cells 0 SEEN Urine Bacteria 0 SEEN Urine Mucus 0 SEEN Radiography Diagnostic Testing: Clinical Impression(s) from Imaging Studies Chest X-Ray 05/05/25 18:35 IMPRESSION: No acute cardiopulmonary disease. Reading Location: [facility] Discharge Plan Triage Chief Complaint: Asthma Other Complaint: Cold Sx ED Provider: Darrin Solis Dx/Rx/DC Orders Clinical Impression: Viral URI, Asthma exacerbation Prescriptions: New albuterol sulfate [Ventolin HFA] 90 mcg/actuation HFA aerosol inhaler 2 puff inhalation Q6H PRN (Reason: shortness of breath or wheezing) Qty: 6.7 0RF prednisone 50 mg tablet 50 mg PO DAILY 5 Days Qty: 5 0RF No Action meloxicam 15 mg tablet 15 mg PO DAILY Patient Comments: TAKE 1 TABLET BY MOUTH DAILY WITH A MEAL Stand Alone Forms: ED Work / School Excuse Primary Care Provider: Immanuel Champion Referrals: Immanuel Champion MD [Primary Care Provider] - Activity Restrictions/Additional Instructions: Use your inhaler and the steroids as prescribed. Rotate Tylenol and ibuprofen [id number] when you do this she can take something every 3 hours for fever control. Max dose Tylenol in 24 hours 4000 mg. Max dose of ibuprofen in 24 hours 3200 mg. Follow your doctor in outpatient setting return with worsening symptoms or other concerns. Your blood work did not show any acute findings your chest x-ray did not show any evidence of pneumonia you likely have a viral illness causing your symptoms. Print Language: Yakut Disposition Disposition: Home, Self Care
--- NOTE | 2025-05-05 19:20 | CPS ---
[1854] x3 Duoneb given to pt. in ER
[2025-05-05 19:25] LABS: AST(SGOT) 19 U/L (<=37); Alanine Aminotransfer ALT/SGPT 13 U/L (<=46); Albumin, Serum 4.5 g/dL (3.5-5.0); Alkaline Phosphatase 78 U/L (40-129); Anion Gap 12 (5-15); BUN 12 mg/dL (4-19); BUN/Creat Ratio 11.4 RATIO (10-20); Calcium,Total 9.7 mg/dL (7.6-11.0); Carbon Dioxide 25.9 mmol/L (21.0-32.0); Chloride 103 mmol/L (98-108); Estimated Creatinine Clearance 69.83 ml/min (50-250); Globulin 3.0 g/dL (2.2-4.2); Glucose 102 mg/dL (70-99); Potassium 4.1 mmol/L (3.3-5.1)
[2025-05-05 19:44] LABS: Mucous, Urine 0 SEEN /hpf (<or=2+); Squamous Epithelial Cells - UA 0 SEEN /hpf (0-5)
[2025-05-05 20:02] LABS: Color, Urine Yellow (Yellow); Glucose, Dipstick Normal (Normal); Ketone-Dipstick Negative (Negative); Leukocyte Esterase-Dipstick Negative /ul (Negative); Nitrite-Dipstick Negative (Negative); Occult Blood-Urine 10 /ul (Negative); Protein-Dipstick Negative (Negative); Specific Gravity, Urine 1.010 (1.002-1.030); Urine Bilirubin Dipstick Negative (Negative)
[2025-05-05 20:03] LABS: Red Blood Cells-Urine 0-5 SEEN /hpf (0-5)
== END 2025-05-05 22:02 | disposition home or self-care (01) ==
PROVIDERS: Emergency Provider Emergency Medicine; PCP Family Medicine; Visit Provider Emergency Medicine
DX: J06.9 Acute upper respiratory infection, unspecified (principal); J45.901 Unspecified asthma with (acute) exacerbation; Z87.891 Personal history of nicotine dependence
CPT/HCPCS: 71046; 80053; 81001; 83605; 85025; 85610; 85730; 87040; 87086; 87631; 93005; 94640; 96361; 96374; 99285; A4216